=== PATIENT | female | born 1985 | race Caucasian/White ===

== ENCOUNTER 2016-02-16 04:27 | Inpatient (IN) ==
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
[2016-02-16 06:54] LABS: Basophils % 0.3 %; Eosinophils # 0.1 K/mcL (0.0-0.6); Eosinophils % 0.9 %; Hematocrit 31.8 % (35.3-44.9); Hemoglobin 10.4 g/dL (11.5-15.4); Immature Granulocytes % 0.3 % (0-4); Lymphocytes # 1.9 K/mcL (0.6-4.6); Lymphocytes % 19.7 %; Mean Corpuscular HGB Conc 32.7 g/dL (31.6-35.5); Mean Corpuscular Volume 91.6 fL (83.0-100.0); Mean Platelet Volume 10.8 fL (9.4-12.4); Monocytes # 0.7 K/mcL (0.0-1.3); Monocytes % 7.5 %; Neutrophils # 6.8 K/mcL (1.6-8.9); Platelet Count 203 K/mcL (140-400); Red Blood Count 3.47 M/mcL (3.82-4.97); Red Cell Distribution Width 15.2 % (11.5-14.5); Segmented Neutrophils % 71.3 %
[2016-02-16 07:07] LABS: BUN/Creatinine Ratio 20 (6-26); Blood Urea Nitrogen 15 mg/dL (7-20); Carbon Dioxide 23 mEq/L (19-29); Chloride 107 mEq/L (98-109); Glucose 106 mg/dL (70-99); Osmolality,Calculated 287 (280-300); Potassium 3.5 mEq/L (3.5-4.5); Sodium 138 mEq/L (136-145); eGFR For African Americans > 60 (> 60); eGFR For Non-African Americans > 60 (> 60)
[2016-02-16 07:08] LABS: Acetaminophen < 1.0 mcg/mL (10-30); Ethanol < 10 mg/dL (0-10); Salicylate < 5.0 mg/dL (15-30)
--- NOTE | 2016-02-16 07:52 | Emergency Department Note ---
Overdose - Medical Records Medical records reviewed: Yes I reviewed the patient's medical records. - Lab Data Lab results reviewed: Yes I reviewed the patient's lab results. Result diagrams: 02/16/16 06:48 02/16/16 06:48 Lab Results 02/16/16 02/16/16 02/16/16 Range/Units 06:48 06:48 08:29 WBC 9.5 (4.3-11.1) K/mcL RBC 3.47 L (3.82-4.97) M/mcL Hgb 10.4 L (11.5-15.4) g/dL Hct 31.8 L (35.3-44.9) % MCV 91.6 (83.0-100.0) fL MCH 30.0 (28.0-33.3) pg MCHC 32.7 (31.6-35.5) g/dL RDW 15.2 H (11.5-14.5) % Plt Count 203 (140-400) K/mcL MPV 10.8 (9.4-12.4) fL Immature Gran % 0.3 (0-4) % Seg Neutrophils % 71.3 % Lymphocytes % 19.7 % Monocytes % 7.5 % Eosinophils % 0.9 % Basophils % 0.3 % Neutrophils # 6.8 (1.6-8.9) K/mcL Lymphocytes # 1.9 (0.6-4.6) K/mcL Monocytes # 0.7 (0.0-1.3) K/mcL Eosinophils # 0.1 (0.0-0.6) K/mcL Basophils # 0.0 (0.0-0.2) K/mcL Sodium 138 (136-145) mEq/L Potassium 3.5 (3.5-4.5) mEq/L Chloride 107 (98-109) mEq/L Carbon Dioxide 23 (19-29) mEq/L BUN 15 (7-20) mg/dL Creatinine 0.74 (0.57-1.11) mg/dL Est GFR ( Amer) > 60 (> 60) Est GFR (Non-Af Amer) > 60 (> 60) BUN/Creatinine Ratio 20 (6-26) Glucose 106 H (70-99) mg/dL Calculated Osmolality 287 (280-300) Calcium 9.0 (8.6-10.8) mg/dL Urine Color Yellow (Yellow) Urine Clarity Clear (Clear) Urine pH 6.0 (5.0-8.0) pH Units Ur Specific [place] 1.017 (1.010-1.025) Urine Protein Trace (Neg-Trace) mg/dL Urine Glucose (UA) Normal (Normal) mg/dL Urine Ketones Negative (Negative) mg/dL Urine Blood Negative (Negative) Urine Nitrite Negative (Negative) Urine Bilirubin Negative (Negative) Urine Urobilinogen Normal (Normal) mg/dL Ur Leukocyte Esterase Trace H (Negative) Urine Microscopic RBC 3-5 H (0-3) per hpf Urine Microscopic WBC 5-15 H (0-3) per hpf Ur Squamous Epith Cells Many H (None-Few) per lpf Urine Bacteria None Seen (None-Few) per hpf Hyaline Casts None Seen (None-Few) per lpf Urine Yeast Test Not Performed Urine Test (Negative) Salicylates < 5.0 L (15-30) mg/dL Urine Opiates Screen (Gqcqhz=875) ng/mL Acetaminophen < 1.0 L (10-30) mcg/mL Ur Barbiturates Screen (Ihwymh=272) ng/mL Ur Phencyclidine Scrn (Cutoff=25) ng/mL Ur Amphetamines Screen (Zkhjcg=9938) ng/mL U Benzodiazepines Scrn (Quyofw=619) ng/mL Urine Cocaine Screen (Cutoff= 300) ng/mL U Marijuana (THC) Screen (Cutoff = 50) ng/mL Ethyl Alcohol < 10 (0-10) mg/dL 02/16/16 02/16/16 Range/Units 08:29 08:29 WBC (4.3-11.1) K/mcL RBC (3.82-4.97) M/mcL Hgb (11.5-15.4) g/dL Hct (35.3-44.9) % MCV (83.0-100.0) fL MCH (28.0-33.3) pg MCHC (31.6-35.5) g/dL RDW (11.5-14.5) % Plt Count (140-400) K/mcL MPV (9.4-12.4) fL Immature Gran % (0-4) % Seg Neutrophils % % Lymphocytes % % Monocytes % % Eosinophils % % Basophils % % Neutrophils # (1.6-8.9) K/mcL Lymphocytes # (0.6-4.6) K/mcL Monocytes # (0.0-1.3) K/mcL Eosinophils # (0.0-0.6) K/mcL Basophils # (0.0-0.2) K/mcL Sodium (136-145) mEq/L Potassium (3.5-4.5) mEq/L Chloride (98-109) mEq/L Carbon Dioxide (19-29) mEq/L BUN (7-20) mg/dL Creatinine (0.57-1.11) mg/dL Est GFR ( Amer) (> 60) Est GFR (Non-Af Amer) (> 60) BUN/Creatinine Ratio (6-26) Glucose (70-99) mg/dL Calculated Osmolality (280-300) Calcium (8.6-10.8) mg/dL Urine Color (Yellow) Urine Clarity (Clear) Urine pH (5.0-8.0) pH Units Ur Specific [place] (1.010-1.025) Urine Protein (Neg-Trace) mg/dL Urine Glucose (UA) (Normal) mg/dL Urine Ketones (Negative) mg/dL Urine Blood (Negative) Urine Nitrite (Negative) Urine Bilirubin (Negative) Urine Urobilinogen (Normal) mg/dL Ur Leukocyte Esterase (Negative) Urine Microscopic RBC (0-3) per hpf Urine Microscopic WBC (0-3) per hpf Ur Squamous Epith Cells (None-Few) per lpf Urine Bacteria (None-Few) per hpf Hyaline Casts (None-Few) per lpf Urine Yeast Urine Test Negative (Negative) Salicylates (15-30) mg/dL Urine Opiates Screen Positive H (Laoxkj=080) ng/mL Acetaminophen (10-30) mcg/mL Ur Barbiturates Screen Negative (Fvqzpt=478) ng/mL Ur Phencyclidine Scrn Negative (Cutoff=25) ng/mL Ur Amphetamines Screen Positive H (Caehqs=4554) ng/mL U Benzodiazepines Scrn Positive H (Nsnsdv=152) ng/mL Urine Cocaine Screen Positive H (Cutoff= 300) ng/mL U Marijuana (THC) Screen Positive H (Cutoff = 50) ng/mL Ethyl Alcohol (0-10) mg/dL - Radiology Data Radiology results reviewed: Yes I reviewed the patient's radiology results. Overdose HPI - General Chief Complaint: ED Overdose Stated Complaint: OD Time Seen by Provider: 02/16/16 04:44 Source: patient, EMS Limitations: no limitations Nursing Notes Reviewed: Yes Vital Signs Reviewed: Yes - Related Data Home Medications Medication Instructions Recorded Confirmed Albuterol Sulfate [Ventolin Hfa] 2 puff IH Q4H PRN 01/24/16 01/24/16 ChlorproMAZINE [Thorazine] 25 mg PO QID 01/24/16 01/24/16 Diazepam [Valium] 10 mg PO TID 01/24/16 01/24/16 Dicyclomine [Bentyl] 10 mg PO TID 01/24/16 01/24/16 Omeprazole [PriLOSEC] 40 mg PO DAILY 01/24/16 01/24/16 Paroxetine HCl [Paxil] 60 mg PO DAILY 01/24/16 01/24/16 Promethazine Syrup [Phenergan 25 mg PO TID 01/24/16 01/24/16 Syrup] Sulfasalazine [Sulfazine] 1,000 mg PO DAILY 01/24/16 01/24/16 Gabapentin [Neurontin] 400 mg PO TID 02/16/16 02/16/16 Gabapentin [Neurontin] 800 mg PO TID 02/16/16 02/16/16 Mometasone/Formoterol [Dulera 100 2 puff IH BID 02/16/16 02/16/16 Mcg/5 Mcg Inhaler] Allergies Allergy/AdvReac Type Severity Reaction Status Date / Time Penicillins Allergy See Verified 10/21/15 01:50 Comments Constitutional: Denies: fever, chills Cardiovascular: Denies: chest pain, dyspnea on exertion Respiratory: Denies: cough, dyspnea Gastrointestinal: Denies: abdominal pain, nausea, vomiting Musculoskeletal: Denies: back pain, neck pain Neurological: Denies: headache, weakness, numbness Psychiatric: Reports: anxiety. Denies: suicidal thoughts Past Medical History - Past Medical History Medical history: Reports: fibromyalgia, hepatitis Surgical history: Reports: non-contributory Psychiatric history: Reports: anxiety, bipolar, depression - Social History Smoking Status: Current every day smoker Smokeless Tobacco Status: No Alcohol use: Reports: none Drug use: Reports: opiates, marijuana, IVDU Physical Exam - General Limitations: no limitations General appearance: alert Course Course Narrative: Assumed care from Dr. Romero. 30-year-old female brought in as a heroin overdose. Patient had been pink slipped prior to our arrival due to her allegations of possible suicidal ideation. She had a CT scan which was concerning for possible acute infarct of the occipital lobe. MRI pending. - Reevaluation(s) Reevaluation #1: MRI exam is negative. Urinalysis appears unremarkable. Urine drug screen shows 5 different substances including benzodiazepines, opiates, cocaine, amphetamines, marijuana. We will await psych 1A evaluation. Time: 08:02 Reevaluation #2: Patient now denying any allegations of suicidal ideation. However when she initially woke, she had made statements saying she wishes she was not awoken up. Stated she took that much drugs for a reason and that she did not want to wake up. Patient now awake and talking without any difficulty. We will have psych 1A evaluate the patient at this time. Time: 10:26 Reevaluation #3: Patient is being admitted to psych 1A at this time. They would like 5 mg IM dose of Zyprexa at this time. Time: 11:28 Vital Signs Temperature 98.0 F 02/16/16 04:29 Pulse Rate 130 02/16/16 04:29 Respiratory Rate 22 02/16/16 04:29 Blood Pressure 140/77 02/16/16 04:29 O2 Sat by Pulse Oximetry 100 02/16/16 04:29 Temperature 98.0 F 02/16/16 04:29 Pulse Rate 130 02/16/16 04:29 Respiratory Rate 22 02/16/16 04:29 Blood Pressure 140/77 02/16/16 04:29 O2 Sat by Pulse Oximetry 100 02/16/16 04:29 Oxygen Delivery Oxygen Delivery Room Air Disposition Clinical Impression: Opiate overdose Qualifiers: Encounter type: initial encounter Injury intent: undetermined intent Qualified Code(s): T40.604A - Poisoning by unspecified narcotics, undetermined, initial encounter Suicide attempt by multiple drug overdose Qualifiers: Encounter type: initial encounter Qualified Code(s): T50.902A - Poisoning by unspecified drugs, medicaments and biological substances, intentional self-harm , initial encounter Disposition: Admitted As Inpatient Condition: Fair Referrals: See Hardy MD [Primary Care Provider] - Forms: ED Satisfaction Letter Time of Disposition: 11:29
[2016-02-16 08:35] LABS: Bilirubin,Urine Negative (Negative); Blood,Urine Negative (Negative); Clarity,Urine Clear (Clear); Color,Urine Yellow (Yellow); Glucose,Urine (UA) Normal (Normal); Ketones,Urine Negative (Negative); Leukocyte Esterase,Urine Trace (Negative); Nitrite,Urine Negative (Negative); Protein,Urine Trace mg/dL (Neg-Trace); Specific Gravity,Urine 1.017 (1.010-1.025); Urobilinogen,Urine Normal (Normal)
[2016-02-16 08:37] LABS: Bacteria,Urine None Seen per hpf (None-Few); Hyaline Casts,Urine None Seen per lpf (None-Few); Squamous Epithelial Cell,Urine Many per lpf (None-Few)
[2016-02-16 08:52] LABS: Amphetamine Screen,Urine Positive ng/mL (Cutoff=1000); Barbiturate Screen,Urine Negative ng/mL (Cutoff=200); Benzodiazepines Screen,Urine Positive ng/mL (Cutoff=200); Cannabinoid Screen,Urine Positive ng/mL (Cutoff = 50); Cocaine Screen,Urine Positive ng/mL (Cutoff= 300); Opiate Screen,Urine Positive ng/mL (Cutoff=300); Phencyclidine Screen,Urine Negative ng/mL (Cutoff=25)
[2016-02-16] MEDS ORDERED: 0.9 % Sodium Chloride 1,000 ML IVC ONE (10:17)
[2016-02-16] MEDS ORDERED: OLANZapine 10 MG VIAL IM ONE ×2 (11:27→13:10)
[2016-02-16] MEDS ORDERED: Water for inj. (sterile) 10 ML IV ONE (11:44)
[2016-02-16] MEDS ORDERED: *HR* LORazepam 2 MG/ML VIAL IM PRN (13:11)
[2016-02-16] MEDS ORDERED: Mag Hydrox/Al Hydrox/Simeth 30 ML UDC PO PRN (13:11)
[2016-02-16] MEDS ORDERED: Ibuprofen 400 MG TABLET PO PRN (13:11)
[2016-02-16] MEDS ORDERED: Haloperidol Lactate 5 MG/ML VIAL IM PRN (13:11)
[2016-02-16] MEDS ORDERED: MOM Conc 10 ML UD.LIQ PO PRN (13:11)
[2016-02-16] MEDS ORDERED: traZODone 50 MG TABLET PO PRN (13:11)
[2016-02-16] MEDS ORDERED: *HR* LORazepam 1 MG TABLET PO PRN (13:11)
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
[2016-02-16] MEDS: Nicotine 21 MG PATCH.TD24 TD SCH (14:11)
[2016-02-16] MEDS: Gabapentin 300 MG CAPSULE PO SCH ×2 (16:08→21:01)
[2016-02-16] MEDS: chlorproMAZINE 25 MG TABLET PO SCH ×2 (16:53→21:01)
--- NOTE | 2016-02-16 17:42 | Electrocardiograph Report ---
Test Date: 2016-02-16 Pat Name: OMARI BELTRAN Department: 103 Room: 1A42 Gender: F Director Of Physical Therapy: MATTHIAS : 1985 Requested By: Virgilio West Order Number: [id number] Reading MD: Anna Leavitt DO Measurements Intervals Nash Rate: 119 P: 58 MT: 120 QRS: 48 QRSD: 99 T: 3 QT: 320 QTc: 390 Interpretive Statements SINUS TACHYCARDIA MINIMAL ST DEPRESSION ABNORMAL RHYTHM ECG Electronically Signed On 02-16-16 17:34:56 EST by Anna Leavitt DO
[2016-02-16] MEDS: sulfaSALAzine 500 MG TABLET PO SCH (18:03)
[2016-02-16] MEDS: Budesonide/Formoterol 80/4.5 MDI IH SCH (22:15)
[2016-02-17] MEDS: Gabapentin 300 MG CAPSULE PO SCH ×3 (09:50→21:29)
[2016-02-17] MEDS ORDERED: diazePAM 5 MG TABLET PO ONE (09:50)
[2016-02-17] MEDS: chlorproMAZINE 25 MG TABLET PO SCH ×3 (09:50→16:59)
[2016-02-17] MEDS: Nicotine 21 MG PATCH.TD24 TD SCH (09:51)
[2016-02-17] MEDS: sulfaSALAzine 500 MG TABLET PO SCH (09:51)
[2016-02-17] MEDS: Budesonide/Formoterol 80/4.5 MDI IH SCH ×2 (09:52→21:30)
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
[2016-02-17] MEDS ORDERED: chlorproMAZINE 25 MG TABLET PO SCH (21:00)
[2016-02-18] MEDS: Nicotine 21 MG PATCH.TD24 TD SCH (09:34)
[2016-02-18] MEDS: Gabapentin 300 MG CAPSULE PO SCH (09:35)
[2016-02-18] MEDS: sulfaSALAzine 500 MG TABLET PO SCH (09:36)
[2016-02-18] MEDS: chlorproMAZINE 25 MG TABLET PO SCH ×2 (09:37→12:50)
[2016-02-18] MEDS: Budesonide/Formoterol 80/4.5 MDI IH SCH (09:38)
[2016-02-18 10:08] VITALS: BP 125/89
--- NOTE | 2016-02-18 11:48 | Discharge Summary ---
Date of Encounter: 02/18/16 Time of Encounter: 11:38 Diagnosis - Discharge Diagnosis (1) Major depression, recurrent Status: Acute Qualifiers: Active/Remission status: currently active Major depression episode severity : moderate Qualified Code(s): F33.1 - Major depressive disorder, recurrent, moderate (2) Polysubstance (including opioids) dependence with physiol dependence Status: Acute Medications - Discharge Medications Albuterol Sulfate [Ventolin Hfa] 2 puff IH Q4H PRN 01/24/16 [History] Diazepam [Valium] 10 mg PO TID 01/24/16 [History] Omeprazole [PriLOSEC] 40 mg PO DAILY 01/24/16 [History] Paroxetine HCl [Paxil] 60 mg PO DAILY 01/24/16 [History] Sulfasalazine [Sulfazine] 1,000 mg PO DAILY 01/24/16 [History] Gabapentin [Neurontin] 800 mg PO TID 02/16/16 [History] Mometasone/Formoterol [Dulera 100 Mcg/5 Mcg Inhaler] 2 puff IH BID 02/16/16 [ History] Albuterol Sulfate [Albuterol Inhaler] 2 puff IH Q2HR PRN #0 inhaler 02/18/16 [Rx ] ChlorproMAZINE [Thorazine] 25 mg PO 0900,1300,1700 tablet 02/18/16 [Rx] ChlorproMAZINE [Thorazine] 50 mg PO HS tablet 02/18/16 [Rx] TraZODone 50 mg PO HS PRN #0 tablet 02/18/16 [Rx] Allergies Penicillins Allergy (Verified 10/21/15 01:50) See Comments Provider Date of admission: 02/16/16 12:47 Primary care physician: See Hardy MD Discharging clinician: Jair Keating Assessment and Plan - Patient/Caregiver Discharge Instructions Activity: resume usual activities as tolerated Diet: regular diet - Follow up Plan Follow up with: [facility] [Outside] (Office staff will contact you directly to schedule your intake appointment for counseling and case management services. You will see psychiatric prescriber, Dr. Tejeda, on 03/29/2016 at 2:00pm. Please arrive 15 minutes early for this appointment to complete paperwork. You may contact the office regularly to check for cancellations that may allow you to be seen sooner by the psychiatric prescriber.) Functional capacity at discharge: independent ambulation Overall status at discharge: Stable Disposition: Home, Self-Care Hospital Course Hospital course: Ms. Terry is a 30 year old female Was admitted after a suicide attempt. Patient was hospitalized and after reviewing the symptom diagnosis and treatment Planning the Risperdal and the side effects alternative treatment consonants and no treatment giving informed consent from the patient she was treated with antidepressant medications and mood stabilizers please refer to the discharge medication list for details of her medications. Patient was encouraged to attend parts of it in groups and anchoring on the unit which included supportive therapy psychoeducational cognitive restructuring and stress management groups etc. Patient was counseled extensively regarding her drug use and his psychological and physiological impact and was helped to identify triggers and develop a relapse prevention plan. Overall patient's condition and stabilize her mood started to become more bright and cheerful. She became more future oriented and positive. Her overall outlook towards life improved significantly. She was able to verbalize a safety and relapse prevention plan. She tolerated medications fairly well and did not report any side effects. Overall patient's discharge condition was stable. - Time Spent with Patient Total time spent providing and/or coordinating discharge services: Quality - Multiple Antipsychotics Patient discharged on 2 or more antipsychotic medications: No Procedures - Procedures Procedures: Medication Management, Crisis Stabilization, Supportive Therapy, Group Therapy, Psychoeducational Therapy Mental Status Exam - Mental Status Exam Patient orientation: Yes Person, Yes Time, Yes Place Level of alertness: Alert Patient appearance: Appropriate, Disheveled Behavior: cooperative Psychomotor activity: Normal Eye contact: Maintains Eye Contact Mood description: Euthymic/stable Affect description: euthymic Speech pattern: Normal rate, Normal rhythm, Normal tone Speech Volume: Normal Thought process: Intact Thought Content: No Suicidal ideation, No Homicidal ideation Perceptual Disturbances: No Auditory hallucinations, No Visual hallucinations Judgment: Fair Insight: Partial
== END 2016-02-18 15:25 | disposition home or self-care (01) | DRG 751 ==
LOC: EMEROO 04:27 → SUATTDRO 12:47 → 1ANU 12:47
PROVIDERS: ADMIT Student in an Organized Health Care Education/Training Program; ATTEND Psychiatry & Neurology Psychiatry

== ENCOUNTER 2017-05-12 21:06 | Inpatient (IN) ==
[2017-05-12] MEDS ORDERED: *HR* LORazepam 2 MG/ML VIAL IM ONE (21:35)
[2017-05-12] MEDS ORDERED: Haloperidol Lactate 5 MG/ML VIAL IM ONE (21:35)
[2017-05-12] MEDS ORDERED: Haloperidol Lactate 5 MG/ML VIAL ONE (21:36)
[2017-05-12] MEDS ORDERED: *HR* LORazepam 2 MG/ML VIAL ONE (21:37)
[2017-05-12] MEDS ORDERED: *HR* OxyCODONE/APAP 10/325 TABLET PO ONE (21:41)
[2017-05-12 22:15] LABS: Basophils % 0.3 %; Eosinophils # 0.4 K/mcL (0.0-0.6); Eosinophils % 2.5 %; Hematocrit 31.8 % (35.3-44.9); Hemoglobin 10.1 g/dL (11.5-15.4); Immature Granulocytes % 0.4 % (0-4); Lymphocytes # 2.6 K/mcL (0.6-4.6); Lymphocytes % 18.2 %; Mean Corpuscular HGB Conc 31.8 g/dL (31.6-35.5); Mean Corpuscular Hemoglobin 29.4 pg (28.0-33.3); Mean Corpuscular Volume 92.7 fL (83.0-100.0); Mean Platelet Volume 11.2 fL (9.4-12.4); Monocytes # 1.2 K/mcL (0.0-1.3); Monocytes % 8.4 %; Platelet Count 251 K/mcL (140-400); Red Blood Count 3.43 M/mcL (3.82-4.97); Segmented Neutrophils % 70.2 %
[2017-05-12 22:41] LABS: Alanine Aminotransferase 27 Units/L (7-52); Albumin 3.9 g/dL (3.5-5.7); Albumin/Globulin Ratio 1.1 (1.1-2.2); Alkaline Phosphatase 158 Units/L (34-104); Aspartate Amino Transferase 26 Units/L (13-39); BUN/Creatinine Ratio 20 (6-26); Bilirubin,Total 0.5 mg/dL (0.3-1.0); Blood Urea Nitrogen 18 mg/dL (6-20); Calcium 9.6 mg/dL (8.6-10.3); Carbon Dioxide 30 mEq/L (23-29); Chloride 100 mEq/L (98-107); Globulin 3.7 g/dL (2.4-3.5); Glucose 82 mg/dL (70-105); Osmolality,Calculated 289 (280-300); Potassium 4.2 mEq/L (3.5-5.1); Sodium 139 mEq/L (136-145); Total Protein 7.6 g/dL (6.4-8.9); eGFR For African Americans > 60 (> 60); eGFR For Non-African Americans > 60 (> 60)
[2017-05-12] MEDS ORDERED: Ziprasidone injection 20 MG/ML VIAL IM ONE ×2 (22:49→23:14)
[2017-05-12] MEDS ORDERED: Clindamycin 900 MG/50 ML 900 MG/50 ML IV.SOLN IVPB ONE (23:05)
--- NOTE | 2017-05-12 23:09 | ENT - History & Physical ---
Date of Encounter: 05/12/17 Time of Encounter: 23:07 Assessment and Plan (1) Neck abscess Current Visit: Yes Status: Acute The assessment and plan as outlined above was discussed with the patient and/or family members who expressed understanding and agreement. All questions were answered. See procedure note dictated Eppert from this History of Present Illness HPI: Ms. Terry is a 32 year old female IV drug user with neck abscess left side admits to using the veins in the neck or access. Comes in by ambulance with combative state. CT scan shows large neck masses pinpointing to the skin in the left neck level III overlying the SCM muscle. Aspect no evidence of thrombosis seen within the internal jugular vein nor thoracic vessels. Past Med Surg Social Fam HX - Past Medical History Medical history: fibromyalgia, hepatitis Psychiatric history: anxiety, depression, other - Past Surgical History Surgical History: non-contributory - Social History Smoking Status: Current every day smoker Smokeless Tobacco Status: No Alcohol use: none Drug use: opiates, marijuana, IV Drug Use Medications and Allergies Albuterol Sulfate [Ventolin Hfa] 2 puff IH Q4H PRN 01/24/16 [History] Omeprazole [PriLOSEC] 40 mg PO DAILY 01/24/16 [History] Paroxetine HCl [Paxil] 60 mg PO DAILY 01/24/16 [History] Sulfasalazine [Sulfazine] 1,000 mg PO DAILY 01/24/16 [History] diazePAM [Valium] 10 mg PO TID 01/24/16 [History] Gabapentin [Neurontin] 800 mg PO TID 02/16/16 [History] Mometasone/Formoterol [Dulera 100 Mcg/5 Mcg Inhaler] 2 puff IH BID 02/16/16 [ History] Albuterol Sulfate [Albuterol Inhaler] 2 puff IH Q2HR PRN #0 inhaler 02/18/16 [Rx ] TraZODone 50 mg PO HS PRN #0 tablet 02/18/16 [Rx] chlorproMAZINE [Thorazine] 25 mg PO 0900,1300,1700 tablet 02/18/16 [Rx] chlorproMAZINE [Thorazine] 50 mg PO HS tablet 02/18/16 [Rx] 3 Allergy/AdvReac Type Severity Reaction Status Date / Time Penicillins Allergy See Verified 10/21/15 01:50 Comments ENT Exam Initial Vital Signs Temp Pulse Resp BP Pulse Ox 98.2 F 103 16 145/89 98 05/12/17 21:22 05/12/17 21:22 05/12/17 21:22 05/12/17 21:22 05/12/17 21:22 Results - Labs 05/12/17 22:05 05/12/17 22:05 Abnormal lab results WBC 14.2 K/mcL (4.3-11.1) H 05/12/17 22:05 RBC 3.43 M/mcL (3.82-4.97) L 05/12/17 22:05 Hgb 10.1 g/dL (11.5-15.4) L 05/12/17 22:05 Hct 31.8 % (35.3-44.9) L 05/12/17 22:05 Neutrophils # 10.0 K/mcL (1.6-8.9) H 05/12/17 22:05 ESR 64 mm/hr (0-15) H 05/12/17 22:05 Carbon Dioxide 30 mEq/L (23-29) H 05/12/17 22:05 Lactic Acid 3.9 mmol/L (0.5-2.2) H 05/12/17 22:05 Alkaline Phosphatase 158 Units/L (34-104) H 05/12/17 22:05 Globulin 3.7 g/dL (2.4-3.5) H 05/12/17 22:05 Diabetes panel 05/12/17 Range/Units 22:05 Sodium 139 (136-145) mEq/L Potassium 4.2 (3.5-5.1) mEq/L Chloride 100 (98-107) mEq/L Carbon Dioxide 30 H (23-29) mEq/L BUN 18 (6-20) mg/dL Creatinine 0.92 (0.60-1.20) mg/dL Glucose 82 (70-105) mg/dL Calcium 9.6 (8.6-10.3) mg/dL AST 26 (13-39) Units/L ALT 27 (7-52) Units/L Alkaline Phosphatase 158 H (34-104) Units/L Albumin 3.9 (3.5-5.7) g/dL Calcium panel 05/12/17 Range/Units 22:05 Calcium 9.6 (8.6-10.3) mg/dL Albumin 3.9 (3.5-5.7) g/dL Pituitary panel 05/12/17 Range/Units 22:05 Sodium 139 (136-145) mEq/L Potassium 4.2 (3.5-5.1) mEq/L Chloride 100 (98-107) mEq/L Carbon Dioxide 30 H (23-29) mEq/L BUN 18 (6-20) mg/dL Creatinine 0.92 (0.60-1.20) mg/dL Glucose 82 (70-105) mg/dL Calcium 9.6 (8.6-10.3) mg/dL Adrenal panel 05/12/17 Range/Units 22:05 Sodium 139 (136-145) mEq/L Potassium 4.2 (3.5-5.1) mEq/L Chloride 100 (98-107) mEq/L Carbon Dioxide 30 H (23-29) mEq/L BUN 18 (6-20) mg/dL Creatinine 0.92 (0.60-1.20) mg/dL Glucose 82 (70-105) mg/dL Calcium 9.6 (8.6-10.3) mg/dL Total Bilirubin 0.5 (0.3-1.0) mg/dL AST 26 (13-39) Units/L ALT 27 (7-52) Units/L Alkaline Phosphatase 158 H (34-104) Units/L Albumin 3.9 (3.5-5.7) g/dL All other labs normal. Procedures: General Surgery - Abscess I/D Consent obtained: verbal consent Site: neck, other Side (if applicable): left Sedation/analgesia: other Technique: needle aspiration Irrigation: No (Side of needle insertion site was cleansed with ChloraPrep) Complications: none
[2017-05-12] MEDS ORDERED: Naloxone 0.4 MG/ML INJ IVP PRN (23:10)
[2017-05-12] MEDS ORDERED: 0.9 % Sodium Chloride 2,000 ML ONE (23:10)
[2017-05-12] MEDS: 0.9 % Sodium Chloride 1,000 ML IVC SCH (23:14)
--- NOTE | 2017-05-12 23:17 | Internal Med History&Physical ---
Date of Encounter: 05/12/17 Time of Encounter: 23:55 Assessment and Plan (1) Severe sepsis Current visit: Yes Status: Acute secondary to neck abscess no fever documented but presented with tachycardia, leukocytosis of 14,200 with left shift, and a greater than 6 cm left sternocleidomastoid abscess secondary to injection of drugs into her neck. She has lactic acidosis, blood pressure WNL Repeat timed lactate ordered, will follow Blood cultures and culture has been sent in the ER, follow final report Continue vancomycin and clindamycin as patient has penicillin allergies. Follow wound culture. Neck Ct noted anD ENT is following. (2) Lactic acidosis Current visit: Yes Status: Acute as above, continue IVF, follow repeat labs (3) Neck abscess Current visit: Yes Status: Acute s/p aspiration of pus by ENT, ENT is following, keep NPO for complete wash out a.m (4) Heroin abuse Current visit: Yes Status: Chronic SW eval (5) Major depression, recurrent Current visit: Yes Status: Chronic per boyfriend at the bedside, the patient was taking off assignment psych meds are properly. The patient denied suicidal or homicidal ideation to the ED team and to department. Patient required multiple sedation medications to prevent harm in the ER Keep sitter at the bedside Psychiatry evaluation when patient is more awake. Qualifiers: Active/Remission status: currently active Major depression episode severity : moderate Qualified Code(s): F33.1 - Major depressive disorder, recurrent, moderate (6) Polysubstance (including opioids) dependence with physiol dependence Current visit: Yes Status: Chronic as in drug abuse monitor for withdrawal (7) Hepatitis C Current visit: Yes Status: Chronic chronic, LFT stable, continue to monitor Qualifiers: Viral hepatitis chronicity: chronic Hepatic coma status: without hepatic coma Qualified Code(s): B18.2 - Chronic viral hepatitis C Internal Medicine - H&P: HPI Chief complaint: Neck abscess Admitted From: Home Plans for Post Hospital Care: Home History of present illness: Ms. Terry is a 32 year old female with history of depression, anxiety, fibromyalgia, intravenous drug abuse and meth use. She presented to the ER with complaints of an extremely large neck abscess on the left sternocleidomastoid muscle after injecting into her neck for 2 weeks. The patient was noted to be extremely agitated on arrival and with erratic behavior requiring multiple sedating medications. At nighttime of evaluation, the patient was drowsy and somnolent from ineffective medications. She had received aspiration of the neck abscess by the end nose and throat physician which has been sent for culture, she had been started on vancomycin by the ER attending. Bufferin at the bedside reports patient has been injecting hearing into her neck region since [address] scan was performed of the neck which showed a mural enhancing large SCM abscess, no evidence of thrombosis seen within the internal jugular vein nor thoracic vessels, with no airway compromise. Lactic acidosis, leukocytosis on in keeping with severe sepsis secondary to cellulitis and neck abscess. She will be admitted for sepsis secondary to cellulitis of neck with abscess, ENT is following Due to extremely combative nature on arrival, patient will require a sitter for now Psych eval when she is more awake Past Med Surg Social Fam HX - Past Medical History Medical history: fibromyalgia, hepatitis Psychiatric history: anxiety, depression, other - Past Surgical History Surgical History: non-contributory - Social History Smoking Status: Current every day smoker Smokeless Tobacco Status: No Alcohol use: none Drug use: opiates, marijuana, IV Drug Use Internal Medicine - H&P: Meds Albuterol Sulfate [Ventolin Hfa] 2 puff IH Q4H PRN 01/24/16 [History] Omeprazole [PriLOSEC] 40 mg PO DAILY 01/24/16 [History] Paroxetine HCl [Paxil] 60 mg PO DAILY 01/24/16 [History] Sulfasalazine [Sulfazine] 1,000 mg PO DAILY 01/24/16 [History] diazePAM [Valium] 10 mg PO TID 01/24/16 [History] Gabapentin [Neurontin] 800 mg PO TID 02/16/16 [History] Mometasone/Formoterol [Dulera 100 Mcg/5 Mcg Inhaler] 2 puff IH BID 02/16/16 [ History] Albuterol Sulfate [Albuterol Inhaler] 2 puff IH Q2HR PRN #0 inhaler 02/18/16 [Rx ] TraZODone 50 mg PO HS PRN #0 tablet 02/18/16 [Rx] chlorproMAZINE [Thorazine] 25 mg PO 0900,1300,1700 tablet 02/18/16 [Rx] chlorproMAZINE [Thorazine] 50 mg PO HS tablet 02/18/16 [Rx] 3 Allergy/AdvReac Type Severity Reaction Status Date / Time Penicillins Allergy See Verified 10/21/15 01:50 Comments ROS unobtainable: due to mental status All Systems PM: A 10-system review of systems was performed and is negative for pertinent findings except as documented above in the HPI. - Constitutional Vitals: Temp Pulse Resp BP Pulse Ox 98.2 F 84 16 102/81 95 05/12/17 21:22 05/12/17 23:00 05/12/17 23:00 05/12/17 23:00 05/12/17 23:00 General appearance: Present: A&O X 0 (patient is deep asleep from medications administered in the ED and only rousable to noxios stimuli) - Head Head exam: Present: atraumatic, normocephalic - Eye Eye exam: Present: PERRL, conjuntiva pink, sclera anicteric Pupils: Present: PERRL - Neck Additional comments: LEft neck wound dressing soaked, when removed ~2X2 com wound draining serous fluid copiously - Respiratory Respiratory exam: Present: CTAB (anterior auscultation) - Cardiovascular Cardiovascular exam: Present: RRR, +S1, +S2. Absent: diastolic murmur, gallop, rubs, systolic murmur - GI/Abdominal GI/Abdominal exam: Present: normal bowel sounds, soft, no peritoneal signs. Absent: distended, tenderness - Extremities Exam Extremities exam: Present: warm, radial pulses palpable and symmetrical. Absent : calf tenderness, cyanotic, pedal edema - Neurological Exam Neurological exam: Present: altered, CN II-XII intact, no focal deficits. Absent: oriented X3, pronater drift, facial droop, speech deficit - Skin Skin exam: Present: dry, intact Additional comments: track kiser Internal Med - H&P Results - Labs CBC & Chem 7: 05/12/17 22:05 05/12/17 22:05 Labs: Short CBC 05/12/17 Range/Units 22:05 WBC 14.2 H (4.3-11.1) K/mcL Hgb 10.1 L (11.5-15.4) g/dL Hct 31.8 L (35.3-44.9) % Plt Count 251 (140-400) K/mcL Neutrophils # 10.0 H (1.6-8.9) K/mcL BMP 04/01/18 22:05 Sodium 139 Potassium 4.2 Chloride 100 Carbon Dioxide 30 H BUN 18 Creatinine 0.92 Glucose 82 Calcium 9.6 Liver Function 05/12/17 Range/Units 22:05 Total Bilirubin 0.5 (0.3-1.0) mg/dL AST 26 (13-39) Units/L ALT 27 (7-52) Units/L Alkaline Phosphatase 158 H (34-104) Units/L Albumin 3.9 (3.5-5.7) g/dL - Impressions ITS Impressions Soft Tissue Neck CT 05/12/17 21:38 IMPRESSION: Left neck predominantly cystic mass with mural enhancing component, presumably abscess, involves posterior aspect sternocleidomastoid muscle as detailed. D/ / Duke Duffy MD / Duke Duffy MD Interpreting Provider: Duke Duffy MD Chest CTA 05/12/17 21:39 IMPRESSION: No evidence of pulmonary embolism or acute pulmonary abnormality. D/ / Josué Garcia MD / Josué Garcia MD Interpreting Provider: Josué Garcia MD
--- NOTE | 2017-05-12 23:17 | ENT - Procedure Note ---
Date of procedure: 05/12/17 (11 PM) Pre-op diagnosis: Left neck abscess, deep Post-op diagnosis: same Procedure: Verbal consent was obtained after CT scan reveals greater than 6 cm abscess level III neck overlying SCM muscle. Area was prepped with ChloraPrep white then 19-gauge needle on a 20 mL syringe was inserted through it already draining sites in the neck skin and 20 mL aspirated into the syringe. Compression over the site then aspirated another 20 mL collected and gauze and then another needle insertion with a clean syringe and needle yielded another 10 mL then a pressure dressing was applied over this. Anesthesia: none Surgeon: Marlon Hernandez Was there an medical support assistant present: Yes Specimens collected: 20 mL of foul-smelling purulent drainage sent to lab for cultures aerobic and anaerobic Condition: stable (Patient was given IV vancomycin prior to the procedure and I recommend IV clindamycin and also she may require incision and drainage with irrigation in the OR tomorrow)
--- NOTE | 2017-05-12 23:27 | Emergency Department Note ---
Disposition Clinical Impression: Abscess Disposition: Home, Self-Care Condition: Good General Adult HPI - General Chief complaint: ED Skin/Abscess/Foreign Body Stated complaint: Abscess Neck Source: patient, family Limitations: no limitations Nursing Notes Reviewed: Yes Vital Signs Reviewed: Yes - History of Present Illness HPI Narrative: This is a 32-year-old female presents with polysubstance abuse disorder and extremely large abscess to the left sternocleidomastoid muscle. The abscess is extremely large and extends from the clavicle to the earlobe on the left sternocleidomastoid muscle. Apparently gases been present for 2 weeks. The patient is extremely agitated on arrival and appears to have sympathomimetic toxidrome. Agitated, erratic behavior There is a large abscess with surrounding cellulitis on the left SCM Abdomen is soft and nontender Heart rate is tachycardic without murmur Lungs are clear Extremities are well-perfused Moves all extremities without neurological deficit Medical decision making Findings consistent with large abscess related to IV drug abuse. The patient had extreme agitation and difficulty with pain control. She was given antipsychotic medications with some improvement. I did call our on-call ENT for a stat consult as I was concerned about the extent of this abscess and potential for airway compromise. ENT was available emergently at the bedside for consultation and graciously performed new aspiration with significant reduction in abscess size. This was after a CT scan was performed of the neck which showed a mural enhancing large SCM abscess. Blood cultures were sent but we are only able to get one set of blood cultures. Lactate was elevated which could be related to amphetamine use or underlying sepsis. She does have a penicillin allergy and I would start broad-spectrum coverage with both vancomycin and clindamycin. The patient will be hydrated with normal saline and be admitted to the hospital for further management and possible surgical intervention by ENT as well as treatment of sepsis. I spent greater than 35 minutes of critical care time resuscitating this acutely ill patient suffering form sepsis with abscess. This was excluding billable procedures. Pain Scale: 10 - Related Data Home Medications Medication Instructions Recorded Confirmed Albuterol Sulfate [Ventolin Hfa] 2 puff IH Q4H PRN 01/24/16 02/16/16 Omeprazole [PriLOSEC] 40 mg PO DAILY 01/24/16 02/16/16 Paroxetine HCl [Paxil] 60 mg PO DAILY 01/24/16 02/16/16 Sulfasalazine [Sulfazine] 1,000 mg PO DAILY 01/24/16 02/16/16 diazePAM [Valium] 10 mg PO TID 01/24/16 02/16/16 Gabapentin [Neurontin] 800 mg PO TID 02/16/16 02/16/16 Mometasone/Formoterol [Dulera 100 2 puff IH BID 02/16/16 02/16/16 Mcg/5 Mcg Inhaler] Previous Rx's Medication Instructions Recorded Albuterol Sulfate [Albuterol 2 puff IH Q2HR PRN #0 inhaler 02/18/16 Inhaler] TraZODone 50 mg PO HS PRN #0 tablet 02/18/16 chlorproMAZINE [Thorazine] 25 mg PO 0900,1300,1700 tablet 02/18/16 chlorproMAZINE [Thorazine] 50 mg PO HS tablet 02/18/16 Allergies Allergy/AdvReac Type Severity Reaction Status Date / Time Penicillins Allergy See Verified 10/21/15 01:50 Comments All systems ED: reviewed and negative except as stated. Review of Systems: As Per HPI Past Medical History - Past Medical History Medical history: Reports: fibromyalgia, hepatitis Surgical history: Reports: non-contributory Psychiatric history: Reports: anxiety, depression, other - Social History Smoking Status: Current every day smoker Smokeless Tobacco Status: No Alcohol use: Reports: none Drug use: Reports: opiates, marijuana, IV Drug Use Physical Exam - General Limitations: no limitations General appearance: alert, in no apparent distress Course Vital Signs Temperature 98.2 F 05/12/17 21:22 Pulse Rate 103 05/12/17 21:22 Respiratory Rate 16 05/12/17 21:22 Blood Pressure 145/89 05/12/17 21:22 O2 Sat by Pulse Oximetry 98 05/12/17 21:22 Temperature 98.2 F 05/12/17 21:22 Pulse Rate 84 05/12/17 23:00 Respiratory Rate 16 05/12/17 23:00 Blood Pressure 102/81 05/12/17 23:00 O2 Sat by Pulse Oximetry 95 05/12/17 23:00 Oxygen Delivery Oxygen Delivery Room Air Medical Decision Making - Lab Data Result diagrams: 05/12/17 22:05 05/12/17 22:05 Lab Results 05/12/17 05/12/17 05/12/17 Range/Units 22:05 22:05 22:05 WBC 14.2 H (4.3-11.1) K/mcL RBC 3.43 L (3.82-4.97) M/mcL Hgb 10.1 L (11.5-15.4) g/dL Hct 31.8 L (35.3-44.9) % MCV 92.7 (83.0-100.0) fL MCH 29.4 (28.0-33.3) pg MCHC 31.8 (31.6-35.5) g/dL RDW 14.0 (11.5-14.5) % Plt Count 251 (140-400) K/mcL MPV 11.2 (9.4-12.4) fL Immature Gran % 0.4 (0-4) % Seg Neutrophils % 70.2 % Lymphocytes % 18.2 % Monocytes % 8.4 % Eosinophils % 2.5 % Basophils % 0.3 % Neutrophils # 10.0 H (1.6-8.9) K/mcL Lymphocytes # 2.6 (0.6-4.6) K/mcL Monocytes # 1.2 (0.0-1.3) K/mcL Eosinophils # 0.4 (0.0-0.6) K/mcL Basophils # 0.0 (0.0-0.2) K/mcL ESR (0-15) mm/hr Sodium 139 (136-145) mEq/L Potassium 4.2 (3.5-5.1) mEq/L Chloride 100 (98-107) mEq/L Carbon Dioxide 30 H (23-29) mEq/L BUN 18 (6-20) mg/dL Creatinine 0.92 (0.60-1.20) mg/dL Est GFR ( Amer) > 60 (> 60) Est GFR (Non-Af Amer) > 60 (> 60) BUN/Creatinine Ratio 20 (6-26) Glucose 82 (70-105) mg/dL Calculated Osmolality 289 (280-300) Lactic Acid 3.9 H (0.5-2.2) mmol/L Calcium 9.6 (8.6-10.3) mg/dL Total Bilirubin 0.5 (0.3-1.0) mg/dL AST 26 (13-39) Units/L ALT 27 (7-52) Units/L Alkaline Phosphatase 158 H (34-104) Units/L C-Reactive Protein (Less than 10) mg/L Serum Total Protein 7.6 (6.4-8.9) g/dL Albumin 3.9 (3.5-5.7) g/dL Globulin 3.7 H (2.4-3.5) g/dL Albumin/Globulin Ratio 1.1 (1.1-2.2) 05/12/17 05/12/17 Range/Units 22:05 22:05 WBC (4.3-11.1) K/mcL RBC (3.82-4.97) M/mcL Hgb (11.5-15.4) g/dL Hct (35.3-44.9) % MCV (83.0-100.0) fL MCH (28.0-33.3) pg MCHC (31.6-35.5) g/dL RDW (11.5-14.5) % Plt Count (140-400) K/mcL MPV (9.4-12.4) fL Immature Gran % (0-4) % Seg Neutrophils % % Lymphocytes % % Monocytes % % Eosinophils % % Basophils % % Neutrophils # (1.6-8.9) K/mcL Lymphocytes # (0.6-4.6) K/mcL Monocytes # (0.0-1.3) K/mcL Eosinophils # (0.0-0.6) K/mcL Basophils # (0.0-0.2) K/mcL ESR 64 H (0-15) mm/hr Sodium (136-145) mEq/L Potassium (3.5-5.1) mEq/L Chloride (98-107) mEq/L Carbon Dioxide (23-29) mEq/L BUN (6-20) mg/dL Creatinine (0.60-1.20) mg/dL Est GFR ( Amer) (> 60) Est GFR (Non-Af Amer) (> 60) BUN/Creatinine Ratio (6-26) Glucose (70-105) mg/dL Calculated Osmolality (280-300) Lactic Acid (0.5-2.2) mmol/L Calcium (8.6-10.3) mg/dL Total Bilirubin (0.3-1.0) mg/dL AST (13-39) Units/L ALT (7-52) Units/L Alkaline Phosphatase (34-104) Units/L C-Reactive Protein > 300 H (Less than 10) mg/L Serum Total Protein (6.4-8.9) g/dL Albumin (3.5-5.7) g/dL Globulin (2.4-3.5) g/dL Albumin/Globulin Ratio (1.1-2.2)
[2017-05-13] MEDS: 0.9 % Sodium Chloride 1,000 ML IVC SCH ×3 (00:29→07:57)
[2017-05-13] MEDS: *HR* Enoxaparin 40 MG/0.4 ML SYRINGE SQ SCH (06:41)
[2017-05-13 07:46] LABS: Basophils % 0.2 %; Eosinophils # 0.4 K/mcL (0.0-0.6); Eosinophils % 4.4 %; Hematocrit 28.2 % (35.3-44.9); Hemoglobin 9.1 g/dL (11.5-15.4); Immature Granulocytes % 0.6 % (0-4); Immature Platelets 5.5 % (1.1-6.1); Lymphocytes # 1.9 K/mcL (0.6-4.6); Lymphocytes % 22.6 %; Mean Corpuscular HGB Conc 32.3 g/dL (31.6-35.5); Mean Corpuscular Hemoglobin 29.5 pg (28.0-33.3); Mean Corpuscular Volume 91.6 fL (83.0-100.0); Mean Platelet Volume 11.9 fL (9.4-12.4); Monocytes # 0.8 K/mcL (0.0-1.3); Monocytes % 9.6 %; Nucleated Red Blood Cells 0.4 /100 WBC (0); Platelet Count 212 K/mcL (140-400); Red Blood Count 3.08 M/mcL (3.82-4.97); Red Cell Distribution Width 14.3 % (11.5-14.5); Segmented Neutrophils % 62.6 %
[2017-05-13] MEDS: Clindamycin 900 MG/50 ML 900 MG/50 ML IV.SOLN IVPB SCH ×3 (07:58→23:34)
[2017-05-13 08:07] LABS: Neutrophils # 5.3 K/mcL (1.6-8.9); Platelet Estimate Normal (Normal)
[2017-05-13 08:08] LABS: BUN/Creatinine Ratio 28 (6-26); Blood Urea Nitrogen 16 mg/dL (6-20); Calcium 8.3 mg/dL (8.6-10.3); Carbon Dioxide 23 mEq/L (23-29); Chloride 113 mEq/L (98-107); Glucose 100 mg/dL (70-105); Osmolality,Calculated 293 (280-300); Potassium 4.1 mEq/L (3.5-5.1); Sodium 141 mEq/L (136-145); eGFR For African Americans > 60 (> 60); eGFR For Non-African Americans > 60 (> 60)
--- NOTE | 2017-05-13 16:00 | Internal Med Progress Note ---
Date of Encounter: 05/13/17 Time of Encounter: 15:58 - Assessment and plan (1) Severe sepsis Current Visit: Yes Status: Acute Assessment and plan: 1 secondary to neck abscess Patient is afebrile presented with tachycardia however presently 70-80 sinus rhythm leukocytosis has improved down to 8.4-left sternocleidomastoid abscess secondary to injection of drugs into her neck Blood pressure has been stable continue to monitor Repeat lactate has improved Blood cultures have been drawn-awaiting results We will continue with vancomycin and clindamycin-patient has penicillin allergy ENT has been consulted-appreciate recommendations-according to ENT note she may require I&D with irrigation in the OR today (2) Lactic acidosis Current Visit: Yes Status: Acute Assessment and plan: 1 this has improved lactate 3.9 down to 0.9 we will continue to monitor (3) Neck abscess Current Visit: Yes Status: Acute Assessment and plan: CT revealed greater than 6 cm abscess overlying SCM muscle. ENT did see patient and aspirated and sent for culture foul-smelling purulent drainage-per ENT note We will continue with vancomycin and clindamycin ENT may have to take patient to OR for I&D and irrigation today-continue with nothing by mouth status (4) Hepatitis C Current Visit: Yes Status: Chronic Assessment and plan: This is chronic LFTs are stable we will continue to monitor this time Qualifiers: Viral hepatitis chronicity: chronic Hepatic coma status: without hepatic coma Qualified Code(s): B18.2 - Chronic viral hepatitis C (5) Heroin abuse Current Visit: Yes Status: Chronic Assessment and plan: Consult licensed clinical social worker Monitor for withdrawal (6) Major depression, recurrent Current Visit: Yes Status: Chronic Assessment and plan: -Sitter has been ordered-patient continues to be groggy per previous documentation the patient denied any suicidal or homicidal ideations in the ER Psych consult once patient is more awake Qualifiers: Active/Remission status: currently active Major depression episode severity : moderate Qualified Code(s): F33.1 - Major depressive disorder, recurrent, moderate (7) Polysubstance (including opioids) dependence with physiol dependence Current Visit: Yes Status: Chronic Assessment and plan: We will monitor for drug withdrawal (8) DVT prophylaxis Current Visit: Yes Status: Acute Assessment and plan: Lovenox subcutaneous - Subjective Interval history: Patient is groggy she arouses to verbal stimuli denies any pain or discomfort at this time. Airway is patent no trachea deviation. Denies any difficulty breathing or shortness of breath - Constitutional Vitals: Temp Pulse Resp BP Pulse Ox 97.1 F L 88 16 126/85 96 05/13/17 11:48 05/13/17 11:48 05/13/17 11:48 05/13/17 11:48 05/13/17 11:48 General appearance: Present: A&O X 2, answers questions appropriately Exam: Patient is groggy arouses to verbal stimuli - Head Head exam: Present: atraumatic, normocephalic - Eye Eye exam: Present: PERRL, conjuntiva pink, sclera anicteric Pupils: Present: PERRL - Neck Neck exam general surgery: Present: supple, trachea midline. Absent: lymphadenopathy Additional comments: Left neck wound dressing intact, area is reddened and tender to touch. Trachea is midline with no deviation - Respiratory Respiratory exam: Present: CTAB. Absent: accessory muscle use, rales, rhonchi, wheezes - Cardiovascular Cardiovascular exam: Present: RRR, +S1, +S2. Absent: diastolic murmur, gallop, rubs, systolic murmur - GI/Abdominal GI/Abdominal exam: Present: normal bowel sounds, soft, no peritoneal signs. Absent: distended, tenderness - Extremities Exam Extremities exam: Present: warm, radial pulses palpable and symmetrical. Absent : calf tenderness, cyanotic, pedal edema - Neurological Exam Neurological exam: Present: altered, no focal deficits. Absent: pronater drift , facial droop, speech deficit Additional comments: Patient is groggy arouses to verbal stimuli - Skin Skin exam: Present: dry, intact Internal Medicine: Result - Labs CBC & Chem 7: 05/13/17 07:04 05/13/17 07:04 Labs: Short CBC 05/13/17 Range/Units 07:04 WBC 8.4 (4.3-11.1) K/mcL Hgb 9.1 L (11.5-15.4) g/dL Hct 28.2 L (35.3-44.9) % Plt Count 212 (140-400) K/mcL Neutrophils # 5.3 (1.6-8.9) K/mcL BMP 05/13/17 07:04 Sodium 141 Potassium 4.1 Chloride 113 H Carbon Dioxide 23 BUN 16 Creatinine 0.58 L Glucose 100 Calcium 8.3 L Consult Discharge Plan - Plan Referrals: See Hardy MD [Primary Care Provider] -
--- NOTE | 2017-05-13 17:24 | ENT - Progress Note ---
Date of Encounter: 05/13/17 Time of Encounter: 12:00 - Assessment and Plan (1) Neck abscess Current Visit: Yes Status: Acute Discussed with patient my recommendation for incision and drainage with packing of area of the left neck abscess. A consent was signed and understood including but not limited to the potential complications of infection, bleeding , scar and nerve damage. I have spoken to the OR and will do this early Saturday (05/14) morning. She can eat today and NPO after midnight. Subjective Patient reports: no new complaints Objective Initial Vital Signs Temp Pulse Resp BP Pulse Ox 98.2 F 103 16 145/89 98 05/12/17 21:22 05/12/17 21:22 05/12/17 21:22 05/12/17 21:22 05/12/17 21:22 - Neck other (Area of neck abscess relatively flat but very indurated, purulent/serous fluid expressed.) - Labs 05/13/17 07:04 05/13/17 07:04 Diabetes panel 05/13/17 Range/Units 07:04 Sodium 141 (136-145) mEq/L Potassium 4.1 (3.5-5.1) mEq/L Chloride 113 H (98-107) mEq/L Carbon Dioxide 23 (23-29) mEq/L BUN 16 (6-20) mg/dL Creatinine 0.58 L (0.60-1.20) mg/dL Glucose 100 (70-105) mg/dL Calcium 8.3 L (8.6-10.3) mg/dL Calcium panel 05/13/17 Range/Units 07:04 Calcium 8.3 L (8.6-10.3) mg/dL Pituitary panel 05/13/17 Range/Units 07:04 Sodium 141 (136-145) mEq/L Potassium 4.1 (3.5-5.1) mEq/L Chloride 113 H (98-107) mEq/L Carbon Dioxide 23 (23-29) mEq/L BUN 16 (6-20) mg/dL Creatinine 0.58 L (0.60-1.20) mg/dL Glucose 100 (70-105) mg/dL Calcium 8.3 L (8.6-10.3) mg/dL Adrenal panel 05/13/17 Range/Units 07:04 Sodium 141 (136-145) mEq/L Potassium 4.1 (3.5-5.1) mEq/L Chloride 113 H (98-107) mEq/L Carbon Dioxide 23 (23-29) mEq/L BUN 16 (6-20) mg/dL Creatinine 0.58 L (0.60-1.20) mg/dL Glucose 100 (70-105) mg/dL Calcium 8.3 L (8.6-10.3) mg/dL Consult Discharge Plan - Plan Referrals: See Hardy MD [Primary Care Provider] -
--- NOTE | 2017-05-13 19:06 | Anesthesia Evaluation PreOp ---
Date of Encounter: 05/13/17 Time of Encounter: 19:02 - Past History Planned Operation: I&D Left neck abscess Cardiac History: Denies any Significant Hx Pulmonary History: Smoker FILM PROJECTOR OPERATOR History: Other (major depression (recurrent) - hx of passive suicidal ideation in 2017, which she currently denies) Other Medical History: Hepatic (Hep C), Other (sepsis from neck abscess, heroin addiction and polysubstance abuse (IVDU, meth)) Anesthesia History: No Prior Anesthetic Complications, Past Anesthesia ( cholecystectomy, ankle surgery) Alcohol Use: none Drug use: opiates, marijuana, IV Drug Use Medications and Allergies Albuterol Sulfate [Ventolin Hfa] 2 puff IH Q4H PRN 01/24/16 [History] Omeprazole [PriLOSEC] 40 mg PO DAILY 01/24/16 [History] Paroxetine HCl [Paxil] 60 mg PO DAILY 01/24/16 [History] Sulfasalazine [Sulfazine] 1,000 mg PO DAILY 01/24/16 [History] diazePAM [Valium] 10 mg PO TID 01/24/16 [History] Gabapentin [Neurontin] 800 mg PO TID 02/16/16 [History] Mometasone/Formoterol [Dulera 100 Mcg/5 Mcg Inhaler] 2 puff IH BID 02/16/16 [ History] Albuterol Sulfate [Albuterol Inhaler] 2 puff IH Q2HR PRN #0 inhaler 02/18/16 [Rx ] TraZODone 50 mg PO HS PRN #0 tablet 02/18/16 [Rx] chlorproMAZINE [Thorazine] 25 mg PO 0900,1300,1700 tablet 02/18/16 [Rx] chlorproMAZINE [Thorazine] 50 mg PO HS tablet 02/18/16 [Rx] 3 Allergy/AdvReac Type Severity Reaction Status Date / Time Penicillins Allergy See Verified 10/21/15 01:50 Comments - Meds/Allergy Pre-op Review Medications Reviewed: Yes Allergies Reviewed: Yes Beta Blockers on Current Med List: No Anesthesia Results - Labs 05/13/17 07:04 05/13/17 07:04 - Imaging EKG: report reviewed, image reviewed (SINUS TACHYCARDIA MINIMAL ST DEPRESSION ABNORMAL RHYTHM ECG) Anesthesia Exam Last Vital Signs Temp 97.7 F 05/13/17 19:48 Pulse 74 05/13/17 19:48 Resp 14 05/13/17 19:48 BP 145/87 05/13/17 19:48 Pulse Ox 95 05/13/17 19:48 Weight: 59 kg - HEENT Pupil (Motor): Pupils equal, EOMI Mallampati: II Teeth: Poor dentition Oral Opening: Greater than 3 - FILM PROJECTOR OPERATOR LOC: Oriented - Cardiac Rhythm: Regular Murmur: None - Pulmonary Breath Sounds: bilateral Clear Respiratory Effort: Symmetrical Anesthesia Assess/Plan ASA Score: 3 Modified Jillian Scale for Level of Consciousness: Cooperative, oriented, and tranquil Anesthetic Plan: General Monitoring Plan: Standard Monitors Recovery Plan: PACU
[2017-05-14] MEDS: *HR* Enoxaparin 40 MG/0.4 ML SYRINGE SQ SCH (05:33)
[2017-05-14] MEDS ORDERED: Lidocaine/EPI 1:100k 1% 50 ML VIAL INFILT ONE (07:13)
--- NOTE | 2017-05-14 07:30 | History & Physical Report ---
Date of Encounter: 05/14/17 Time of Encounter: 07:28 24 Hour HP Update - Instructions Instructions: If the History and Physical is less than 30 days old and was completed prior to A.M. admission and or procedure and has NOT been updated on calendar day of procedure please complete this update prior to performing procedure. - Update Patient reports changes in Medical Condition: No Changes in examination, assessment, or condition: No Changes in Medication: No Preop tests/diagnostics Reviewed: Yes Pre-Op MRSA Screen: Negative Surgery Remains Indicated: Yes Consent for Planned Operative Procedure(s) Verified: Yes - Pre-Operative Checklist Preoperative Checklist Indicated: Yes Prophylactic Antibiotic Ordered: No Home Medications Include Beta Beatrice: No Beta Beatrice Taken Today (Day of Surgery): No Beta Beatrice Taken Yesterday (Day Prior to Surgery): No Is VTE Prophylaxis Indicated?: Yes
[2017-05-14] MEDS: Clindamycin 900 MG/50 ML 900 MG/50 ML IV.SOLN IVPB SCH ×2 (07:45→17:11)
[2017-05-14 07:55] LABS: Hematocrit 30.7 % (35.3-44.9); Hemoglobin 9.9 g/dL (11.5-15.4); Mean Corpuscular HGB Conc 32.2 g/dL (31.6-35.5); Mean Corpuscular Hemoglobin 29.3 pg (28.0-33.3); Mean Corpuscular Volume 90.8 fL (83.0-100.0); Monocytes # 0.5 K/mcL (0.0-1.3); Platelet Count 239 K/mcL (140-400); Red Blood Count 3.38 M/mcL (3.82-4.97); Red Cell Distribution Width 14.4 % (11.5-14.5)
--- NOTE | 2017-05-14 07:59 | ENT - Procedure Note ---
Date of procedure: 05/14/17 Pre-op diagnosis: left neck abscess Post-op diagnosis: same Procedure: Debridement and packing of left neck wound. Anesthesia: local Surgeon: Ellyn Bolton Was there an assistant technician present: No Estimated blood loss (cc): 5 Specimens collected: cultures Condition: stable
[2017-05-14] MEDS ORDERED: *HR* Propofol 200 MG/20 ML VIAL IVP ONE (08:04)
[2017-05-14] MEDS ORDERED: *HR* Midazolam HCl 2 MG/2 ML VIAL ONE (08:04)
[2017-05-14] MEDS ORDERED: *HR* FentaNYL (PF) 100 MCG/2 ML VIAL ONE (08:04)
[2017-05-14] MEDS ORDERED: Dexamethasone 4 MG/ML VIAL ONE (08:11)
[2017-05-14] MEDS ORDERED: Ondansetron 4 MG/2 ML VIAL ONE (08:11)
[2017-05-14] MEDS ORDERED: *HR* HYDROcodone/Acet 7.5/325 mg TABLET PO PRN (08:19)
[2017-05-14 08:29] LABS: BUN/Creatinine Ratio 24 (6-26); Blood Urea Nitrogen 11 mg/dL (6-20); Calcium 8.5 mg/dL (8.6-10.3); Carbon Dioxide 23 mEq/L (23-29); Chloride 110 mEq/L (98-107); Glucose 94 mg/dL (70-105); Osmolality,Calculated 283 (280-300); Potassium 3.8 mEq/L (3.5-5.1); Sodium 137 mEq/L (136-145); eGFR For African Americans > 60 (> 60); eGFR For Non-African Americans > 60 (> 60)
[2017-05-14 08:38] LABS: Eosinophils # 0.4 K/mcL (0.0-0.6); Lymphocytes # 1.8 K/mcL (0.6-4.6); Neutrophils # 2.5 K/mcL (1.6-8.9); Platelet Estimate Normal (Normal)
[2017-05-14 08:39] LABS: Polychromasia 1+ (Not Present)
--- NOTE | 2017-05-14 09:11 | Anesthesia Evaluation Post Op ---
Date of Encounter: 05/14/17 Time of Encounter: 09:10 - Vital Signs Vital Signs: Penicillins Allergy (Verified 10/21/15 01:50) See Comments - Lungs Lungs: Clear Ascult./Percussion - Airway Airway: Non-obstructed - Cardiovascular Regular Rate - Mental Status Mental Status: Alert & Oriented, Answers Appropriately - Pain Pain Scale: 3 - Nausea Vomiting Nausea Vomiting: Not Present - Hydration Hydration: Ice chips - Discharge PostOp Status: Transfer Patient to floor
--- NOTE | 2017-05-14 09:25 | Operative Note ---
Date of procedure: 05/14/17 Pre-op diagnosis: Left neck abscess Post-op diagnosis: same Procedure: Debridement and packing of Left neck abscess/wound Implants: none Complications: none Anesthesia: GETA Local Anesthetics: 1% Lidocaine HCL with Epinephrine 1:200,000 SubQ (cc) (10 ml) Surgeon: Ellyn Bolton Was there an specimen preparation assistant present: No Estimated blood loss (cc): 5 Specimen: culture Condition: stable Disposition: PACU Procedure in Detail: The patient's left neck was marked in the surgical hold and then she was brought into the Operating room. A timeout was completed per [facility] protocol. The patient was given general anesthesia with an LMA. I injected 10 ml of 1% lido with epi around the draining site of the left neck. She was then prepped and draped in the usual fashion. I then examined the wound. The neck had an indurated moderately erythematous area of about 6 cm in diameter down to the clavicle. There was a 1 x 2 cm area of necrotic tissue with a hole in the center. I excised the necrotic tissue and then probed the wound. No pus was encountered but I cultured the wound as there were no results available from initial aspiration done in the ED. I then irrigated the pocket and gently opened a few septations. No further pus was obtained and the pocket was relatively superficial to the skin. I packed the wound with 1/4" iodiform gauze. There was approximately 5 ml of venous bleeding. Telfa and dressing was then applied. The patient tolerated the procedure well and was stable to the Recovery Room.
[2017-05-14] MEDS: Acetaminophen 325 MG TABLET PO PRN ×2 (11:00→17:10)
--- NOTE | 2017-05-14 11:03 | Infectious Disease Consult ---
Date of Encounter: 05/14/17 Time of Encounter: 11:00 Assessment and Plan (1) Severe sepsis Status: Acute Assessment and plan: The patient had two SIRS criteria on admission with lactic acidosis. Likely secondary to left neck abscess. Improved. WBC normalized. Tachycardia has resolved. Lactic acidosis has resolved. Blood cultures drawn 05/12/17 are NGTD x 2 sets. (2) Neck abscess Status: Acute Assessment and plan: Causative organism: GCS. Likely secondary to IVDU. The patient reports using the left neck as an injection site. CT neck showed a left neck, predominantly cystic, mass consistent with abscess with involvement of the posterior SCM muscle. ENT consulted. Status post bedside aspiration in the ED on 05/12/17 that yielded ~ 50ml of pus. Status post operative I & D 05/14/17. Operative note reviewed. No pus noted intra- op. Intra-op cultures are pending. The patient has a documented allergy to PCN. Exact reaction unknown. Reports she had "swelling" when she was a baby. Wound care per ENT recommendations. Continue Clindamycin 900mg IV Q8H. Continue Vancomycin IV for now. Pharmacy to dose. Goal trough ~15. Start probiotics. Duration of treatment depends on the clinical picture. Monitor renal function and for drug toxicity and dose-adjust antibiotics. (3) Lactic acidosis Status: Resolved Assessment and plan: Likely secondary to sepsis. Resolved. (4) Tobacco abuse Status: Acute Assessment and plan: Tobacco cessation counseling provided. (5) Crohns disease Status: Chronic Assessment and plan: Takes sulfasalazine. Qualifiers: Gastrointestinal tract location: unspecified location Digestive disease complication type: unspecified complication Qualified Code(s): K50.919 - Crohn 's disease, unspecified, with unspecified complications (6) Hepatitis C Status: Chronic Assessment and plan: Secondary to IVDU. Known Hep C positive. Check HIV status. Qualifiers: Viral hepatitis chronicity: chronic Hepatic coma status: without hepatic coma Qualified Code(s): B18.2 - Chronic viral hepatitis C (7) Major depression, recurrent Status: Chronic Assessment and plan: Psychiatry consulted. Await recommendations. Qualifiers: Active/Remission status: currently active Major depression episode severity : moderate Qualified Code(s): F33.1 - Major depressive disorder, recurrent, moderate (8) Polysubstance (including opioids) dependence with physiol dependence Status: Chronic Infectious Disease HPI - Data of Consult Patient: new to practice Consult date: 05/14/17 Requesting Physician: Delilah Linares CNP Primary Care Provider: See Hardy MD - Consult Narrative Reason for consult: Left neck abscess History of present illness: Ms. Terry is a 32 year old female with a past medical history of hepatitis C secondary to IV drug use, Crohn's disease, fibromyalgia, anxiety, and depression. The patient was admitted to the hospital May 12 for left neck abscess. We are consulted May 14 for antibiotic recommendations for left neck abscess. Briefly, the patient's a 32-year-old female with past medical history as stated above. The patient presented to the emergency department with a one-week history of a left neck abscess. Upon arrival to the ER, the patient was tachycardic and have leukocytosis. Additional laboratory studies reveal a lactic acidosis as well as markedly elevated inflammatory markers. Blood cultures were obtained [address] Soft tissue neck [address] showed a left neck predominantly cystic mass presumably an abscess with posterior sternocleidomastoid muscle involvement. She was CTA of the chest rule out septic emboli and pulmonary embolism that were negative. The patient was evaluated by ENT in the emergency department had underwent a bedside aspiration that diminish the size of the abscess and yielded about 50 mL's of pus. This was sent for culture and came back positive for group C strep. She was started on vancomycin and Clindamycin. She was admitted to the hospital for further evaluation. Since admission, the patient's lactic acidosis has resolved. Her white blood cell count was back to normal. She was taken to the operating room this morning and underwent a debridement with packing of the left neck wound/ abscess. Intraoperative cultures are pending. She continues to be on IV vancomycin and IV clindamycin. We have asked to evaluate and make further recommendations. During my exam today, the patient states that she developed left neck pain, redness, and swelling about a week prior to presentation that progressively worsened. She denies fevers, chills, or rigors. She reports radiation of the pain from the left neck up into her head. She reports some dizziness and intermittent blurred vision as well. She denies congestion, earache, and sore throat. She denies chest pain, shortness of breath, or cough. Denies nausea, vomiting, or diarrhea. States her Crohn's has been well-controlled on her medication. She reports poor appetite. Denies urinary complaints. Denies oral thrush or additional skin lesions. The patient lives at home with her boyfriend. She reports she has been using IV drugs on and off for the past 12 years, but consistently for the past 2 years. She also reports she was taken off her psychiatric medications because her psychiatrist while she was incarcerated and her PCP would not refill her psych medications. She reports smoking about a half a pack of cigarettes per day. She denies alcohol use. She denies any additional infectious diseases except as previously mentioned. CC: Delilah Linares, SHIRA Past Med Surg Social Fam HX - Past Medical History Attestation: Yes The following information was validated with the patient. Source: patient, old records reviewed, nursing notes reviewed Medical history: fibromyalgia, hepatitis (Hep C) Psychiatric history: anxiety, depression, other - Past Surgical History Surgical History: non-contributory - Social History Smoking Status: Current every day smoker Packs per day: 1 Smokeless Tobacco Status: No Alcohol use: none Drug use: opiates, marijuana, IV Drug Use Occupational status: unemployed Current living situation: Home - Independent Activity Level: Independent ambulation Recent Out of Country Travel Within the Last 8 Weeks: No Exposure or Possible Exposure to Illness During Travel: No - Family History Mother History Unknown: Yes Infectious Disease-CN:Meds Albuterol Sulfate [Ventolin Hfa] 2 puff IH Q4H PRN 01/24/16 [History] Omeprazole [PriLOSEC] 40 mg PO DAILY 01/24/16 [History] Paroxetine HCl [Paxil] 60 mg PO DAILY 01/24/16 [History] Sulfasalazine [Sulfazine] 1,000 mg PO DAILY 01/24/16 [History] Gabapentin [Neurontin] 1,200 mg PO TID 02/16/16 [History] Dicyclomine [Bentyl] 10 - 20 mg PO TID PRN 05/14/17 [History] 3 Allergy/AdvReac Type Severity Reaction Status Date / Time Penicillins Allergy See Verified 10/21/15 01:50 Comments All systems: reviewed and no additional remarkable complaints except as stated Exam - Constitutional Vitals: Temp Pulse Resp BP Pulse Ox 97.6 F 76 13 124/87 94 05/14/17 09:27 05/14/17 09:27 05/14/17 09:27 05/14/17 09:27 05/14/17 09:27 General appearance: average body habitus, cooperative, no acute distress Infectious Disease CN: Results - Labs CBC & Chem 7: 05/14/17 06:42 05/14/17 06:42 Cultures: Cultures 05/12/17 22:54 Wound Culture - Final Neck Group C Streptococcus 05/12/17 22:47 Blood Culture - Preliminary Peripheral Venipuncture No growth. 05/12/17 22:05 Blood Culture - Preliminary Peripheral Venipuncture No growth. Serology: Serology 05/14/17 Range/Units 04:14 Urine Test Negative (Negative) Consult Discharge Plan - Plan Referrals: See Hardy MD [Primary Care Provider] - - Attending Attestation I examined this patient and my medical decision-making was reviewed with the Resident Physician. I agree with the documented findings, disposition and treatment plan as described except to the extent set forth below. This is an addendum to original report dictated by Gaby Martinez CNP. Please refer to Maria M note for full detail. Patient is a 35-year-old woman who is allergic to penicillin with angioedema also has hepatitis C his IV drug use or use her neck veins to inject IV drugs. Patient states about 2 weeks ago started having pain and swelling in her neck. Vision eventually had severe pain and swelling and came into the emergency department for evaluation. Patient was noted to have a large abscess that was pretty impressive on the CAT scan. Cultures were obtained by bedside I&D and cultures were noted to be group C streptococcus. Patient was taken to surgery where she had significant I&D. Post op patient seems to be doing okay clinically. We were asked to evaluate the patient and make further recommendations. Currently patient shows to SIRS criteria with us acidosis which put her at severe sepsis, she also has the group C strep. Currently patient on vancomycin and clindamycin, await blood cultures to finalize. We will speak with ENT to see if the patient needs IV antibiotics further recommendations or can just switch her to oral clindamycin she states she is allergic to penicillin. Duration of treatment probably 14 days
--- NOTE | 2017-05-14 12:49 | Consult Note ---
Date of Encounter: 05/14/17 Time of Encounter: 11:50 Assessment & Recommendation (1) Major depression, recurrent Current visit: Yes Status: Chronic Assessment & Recommendation: Recommend continuing Paxil for depression as patient states this is helpful. Since we are at maximum dosage would have to add medication in to help patient with mood symptoms. Consider adding low-dose of Abilify (2mg) for mood stabilization and improvement in depression symptoms. Encouraged patient to consider outpatient counseling and substance abuse treatment as well. Patient has a history of agitation on this admission and history of impulsivity. Would recommend continuing sitter for now. Qualifiers: Active/Remission status: currently active Major depression episode severity : moderate Qualified Code(s): F33.1 - Major depressive disorder, recurrent, moderate (2) Anxiety Current visit: No Status: Acute Assessment & Recommendation: Vistaril as needed for anxiety. The tried Vistaril 25 mg 1-2 capsules when necessary anxiety up to twice a day. We will avoid using controlled substances. (3) Polysubstance (including opioids) dependence with physiol dependence Current visit: Yes Status: Chronic Assessment & Recommendation: Encourage substance abuse treatment once medically stabilized. Monitor for opiate withdrawal and treat symptomatically. History of Present Illness Patient: known to practice within the last 3 years Requesting Physician: Delilah Linares CNP Reason for consult: Stopped psych medications abruptly, opiate dependence History of present illness: Ms. Terry is a 32 year old female with a history of opiate dependence, major depressive disorder, anxiety who presented to the hospital with an abscess. She was apparently very agitated on arrival to the hospital and required hopeful sedating medications in order to help her remain calm. She has a history of IV drug abuse and had an abscess on her neck that required surgical attention. Patient states that she continues to have depression and struggle with anxiety. Since going off her meds from her previous psychiatrist she has not really had a psychiatrist or been taking psych meds as she is supposed to. She has a lot of anxiety she does think that the Paxil is helpful somewhat. She has difficulty sleeping but also admits to chronic drug use up until her arrival to the hospital. She denies auditory or visual hallucinations. She denies obsessions, delusions, paranoia. She does report mood swings and irritability. She would like medication adjustments but does not think that she will need to be hospitalized. "I do not want to hurt myself." Patient is potentially interested in substance abuse and mental health counseling as an outpatient. She has a history of being fairly noncompliant with outpatient treatment. Patient has tried Seroquel, BuSpar, trazodone, Remeron in the past and states that "I do not like those." The most helpful medications for her per patient were Valium and Thorazine as prescribed by her previous doctor. CC: Delilah Linares, SHIRA Past Med Surg Social Fam HX - Past Medical History Medical history: fibromyalgia, hepatitis (Hep C) - Past Psychiatric History Psychiatric history: Reports: prior suicide attempt, previous psychiatric hospitalization Past psychiatric history details: She has a history of admissions to psychiatric hospital for depression, anxiety , opiate dependence. She has 1 suicide attempt in the past after her of a drug overdose. She has long-standing history of outpatient treatment and has largely been noncompliant with this. She has a history of polysubstance abuse and IV drug abuse. Family psychiatric history: No Family History of Suicide: None - Past Surgical History Surgical History: non-contributory - Social History Smoking Status: Current every day smoker Smokeless Tobacco Status: No Alcohol use: none Drug use: opiates, marijuana, IV Drug Use Occupational status: unemployed Activity Level: Independent ambulation - Family History Mother History Unknown: Yes Medications & Allergies Albuterol Sulfate [Ventolin Hfa] 2 puff IH Q4H PRN 01/24/16 [History] Omeprazole [PriLOSEC] 40 mg PO DAILY 01/24/16 [History] Paroxetine HCl [Paxil] 60 mg PO DAILY 01/24/16 [History] Sulfasalazine [Sulfazine] 1,000 mg PO DAILY 01/24/16 [History] Gabapentin [Neurontin] 1,200 mg PO TID 02/16/16 [History] Dicyclomine [Bentyl] 10 - 20 mg PO TID PRN 05/14/17 [History] 3 Allergy/AdvReac Type Severity Reaction Status Date / Time Penicillins Allergy See Verified 10/21/15 01:50 Comments Review of Systems Constitutional: Denies: fever, chills, weakness, weight change Eyes: Denies: eye pain, vision change Ears, Nose, Throat: Denies: ear pain, throat pain, dental pain, hearing loss, congestion Cardiovascular: Denies: chest pain, palpitations, dyspnea on exertion Respiratory: Denies: cough, dyspnea, wheezes Gastrointestinal: Denies: abdominal pain, nausea, vomiting, diarrhea, constipation Genitourinary female: Denies: urgency, dysuria, frequency, abnormal menses, dyspareunia Musculoskeletal: Reports: joint pain Integumentary: Denies: rash, lesions, pruritus Neurological: Denies: headache, weakness, numbness, memory loss Psychiatric: Reports: depression, anxiety, abnormal sleep pattern, difficulty concentrating, irritability, mood swings, panic attacks. Denies: suicidal ideation, auditory hallucinations, visual hallucinations, hopelessness Endocrine: Denies: fatigue, heat or cold intolerance Hematologic/Lymphatic: Denies: easy bruising, lymphadenopathy Allergic/Immunologic: Denies: urticaria, itchy eyes Psychiatry Exam - Constitutional Vitals: Temp Pulse Resp BP Pulse Ox 97.6 F 62 14 130/89 96 05/14/17 09:27 05/14/17 12:30 05/14/17 12:30 05/14/17 12:30 05/14/17 12:30 General appearance: unkempt - Musculoskeletal Gait: other (Patient is lying in bed) Station: relaxed Strength & Tone: normal for patient - Psychiatric Patient Orientation: Yes Person, Yes Place, Yes Circumstance Level of alertness: Alert Behavior: calm, cooperative Psychomotor activity: Normal Eye Contact: Minimal Contact Mood Description: Depressed, Anxious Affect description: congruent with mood Speech Volume: Normal Speech pattern: normal rate, normal rhythm, normal tone Language & Vocabulary: consistent with education Thought Process: Intact, Goal Oriented Thought Content: No Suicidal ideation, No Homicidal ideation Perceptual Disturbances: No Auditory hallucinations, No Visual hallucinations Attention Span Ability: Capable of Focused Attention Memory Description: Grossly Intact Patient Reliability: Reliable Historian Fund of knowledge: Yes abstraction ability, Yes aware of current events Intelligence Estimate: Average Judgment: Limited Insight: Partial Results - Labs Labs: Laboratory Last Values WBC 5.2 K/mcL (4.3-11.1) 05/14/17 06:42 RBC 3.38 M/mcL (3.82-4.97) L 05/14/17 06:42 Hgb 9.9 g/dL (11.5-15.4) L 05/14/17 06:42 Hct 30.7 % (35.3-44.9) L 05/14/17 06:42 MCV 90.8 fL (83.0-100.0) 05/14/17 06:42 MCH 29.3 pg (28.0-33.3) 05/14/17 06:42 MCHC 32.2 g/dL (31.6-35.5) 05/14/17 06:42 RDW 14.4 % (11.5-14.5) 05/14/17 06:42 Plt Count 239 K/mcL (140-400) 05/14/17 06:42 MPV 12.0 fL (9.4-12.4) 05/14/17 06:42 Immature Gran % 0.6 % (0-4) 05/13/17 07:04 Seg Neutrophils % 46.0 % 05/14/17 06:42 Band Neutrophils % 2.0 % (0-4) 05/14/17 06:42 Lymphocytes % 34.0 % 05/14/17 06:42 Monocytes % 10.0 % 05/14/17 06:42 Eosinophils % 8.0 % 05/14/17 06:42 Basophils % 0.2 % 05/13/17 07:04 Neutrophils # 2.5 K/mcL (1.6-8.9) 05/14/17 06:42 Lymphocytes # 1.8 K/mcL (0.6-4.6) 05/14/17 06:42 Monocytes # 0.5 K/mcL (0.0-1.3) 05/14/17 06:42 Eosinophils # 0.4 K/mcL (0.0-0.6) 05/14/17 06:42 Basophils # 0.0 K/mcL (0.0-0.2) 05/13/17 07:04 Nucleated RBCs/100 WBC 0.4 /100 WBC (0) H 05/13/17 07:04 Platelet Estimate Normal (Normal) 05/14/17 06:42 Immature Plt Fraction 5.5 % (1.1-6.1) 05/13/17 07:04 Polychromasia 1+ (Not Present) A 05/14/17 06:42 ESR 64 mm/hr (0-15) H 05/12/17 22:05 Sodium 137 mEq/L (136-145) 05/14/17 06:42 Potassium 3.8 mEq/L (3.5-5.1) 05/14/17 06:42 Chloride 110 mEq/L (98-107) H 05/14/17 06:42 Carbon Dioxide 23 mEq/L (23-29) 05/14/17 06:42 BUN 11 mg/dL (6-20) 05/14/17 06:42 Creatinine 0.45 mg/dL (0.60-1.20) L 05/14/17 06:42 Est GFR ( Amer) > 60 (> 60) 05/14/17 06:42 Est GFR (Non-Af Amer) > 60 (> 60) 05/14/17 06:42 BUN/Creatinine Ratio 24 (6-26) 05/14/17 06:42 Glucose 94 mg/dL (70-105) 05/14/17 06:42 POC Glucose 87 mg/dL (58-89) 05/13/17 17:30 Calculated Osmolality 283 (280-300) 05/14/17 06:42 Lactic Acid 0.9 mmol/L (0.5-2.2) 05/13/17 06:59 Calcium 8.5 mg/dL (8.6-10.3) L 05/14/17 06:42 Magnesium 2.0 mg/dL (1.6-2.6) 05/13/17 07:04 Total Bilirubin 0.5 mg/dL (0.3-1.0) 05/12/17 22:05 AST 26 Units/L (13-39) 05/12/17 22:05 ALT 27 Units/L (7-52) 05/12/17 22:05 Alkaline Phosphatase 158 Units/L (34-104) H 05/12/17 22:05 C-Reactive Protein > 300 mg/L (Less than 10) H 05/12/17 22:05 Serum Total Protein 7.6 g/dL (6.4-8.9) 05/12/17 22:05 Albumin 3.9 g/dL (3.5-5.7) 05/12/17 22:05 Globulin 3.7 g/dL (2.4-3.5) H 05/12/17 22:05 Albumin/Globulin Ratio 1.1 (1.1-2.2) 05/12/17 22:05 Urine Test Negative (Negative) 05/14/17 04:14 Vancomycin Trough 10 mcg/mL (5-10) 05/14/17 09:39 Consult Discharge Plan - Plan Referrals: See Hardy MD [Primary Care Provider] -
--- NOTE | 2017-05-14 16:35 | ENT - Progress Note ---
Date of Encounter: 05/14/17 Time of Encounter: 16:33 - Assessment and Plan (1) Neck abscess Current Visit: Yes Status: Acute Stable, will plan on somewhat advancing the gauze packing tomorrow and consulting wound care team. I appreciate the help with pain management from the Hospitalist team. Subjective Patient reports: no new complaints, still having pain Objective Initial Vital Signs Temp Pulse Resp BP Pulse Ox 98.2 F 103 16 145/89 98 05/12/17 21:22 05/12/17 21:22 05/12/17 21:22 05/12/17 21:22 05/12/17 21:22 - Neck other (dressing intact without significant blood) - Labs 05/14/17 06:42 05/14/17 06:42 Diabetes panel 05/14/17 Range/Units 06:42 Sodium 137 (136-145) mEq/L Potassium 3.8 (3.5-5.1) mEq/L Chloride 110 H (98-107) mEq/L Carbon Dioxide 23 (23-29) mEq/L BUN 11 (6-20) mg/dL Creatinine 0.45 L (0.60-1.20) mg/dL Glucose 94 (70-105) mg/dL Calcium 8.5 L (8.6-10.3) mg/dL Calcium panel 05/14/17 Range/Units 06:42 Calcium 8.5 L (8.6-10.3) mg/dL Pituitary panel 05/14/17 Range/Units 06:42 Sodium 137 (136-145) mEq/L Potassium 3.8 (3.5-5.1) mEq/L Chloride 110 H (98-107) mEq/L Carbon Dioxide 23 (23-29) mEq/L BUN 11 (6-20) mg/dL Creatinine 0.45 L (0.60-1.20) mg/dL Glucose 94 (70-105) mg/dL Calcium 8.5 L (8.6-10.3) mg/dL Adrenal panel 05/14/17 Range/Units 06:42 Sodium 137 (136-145) mEq/L Potassium 3.8 (3.5-5.1) mEq/L Chloride 110 H (98-107) mEq/L Carbon Dioxide 23 (23-29) mEq/L BUN 11 (6-20) mg/dL Creatinine 0.45 L (0.60-1.20) mg/dL Glucose 94 (70-105) mg/dL Calcium 8.5 L (8.6-10.3) mg/dL Consult Discharge Plan - Plan Referrals: See Hardy MD [Primary Care Provider] -
--- NOTE | 2017-05-14 16:40 | Internal Med Progress Note ---
Date of Encounter: 05/14/17 Time of Encounter: 16:38 - Assessment and plan (1) Heroin abuse Current Visit: Yes Status: Chronic Assessment and plan: Recommend outpatient treatment per psychiatry (2) Hepatitis C Current Visit: Yes Status: Chronic Assessment and plan: Secondary to IV drug use, known hep C positive, infectious disease recommends checking HIV status Qualifiers: Viral hepatitis chronicity: chronic Hepatic coma status: without hepatic coma Qualified Code(s): B18.2 - Chronic viral hepatitis C (3) Major depression, recurrent Current Visit: Yes Status: Chronic Assessment and plan: Psychiatric consult. Appreciate input and assistance with this patient. Will add Abilify 2 mg per your recommendations and continue Paxil at max dose. We will encourage patient toward outpatient counseling and substance abuse treatment Continue sitter at this time for impulsivity but psychiatrist stated she is not a threat to herself or others so if she decides to leave AGAINST MEDICAL ADVICE we cannot hold her. Qualifiers: Active/Remission status: currently active Major depression episode severity : moderate Qualified Code(s): F33.1 - Major depressive disorder, recurrent, moderate (4) Polysubstance (including opioids) dependence with physiol dependence Current Visit: Yes Status: Chronic Assessment and plan: Psychiatrist recommends outpatient substance abuse treatment Monitor for withdrawal (5) Severe sepsis Current Visit: Yes Status: Acute Assessment and plan: Patient met 2 SIRS criteria on admission with lactic acidosis likely secondary to the left neck abscess Patient has improved with normalized WBCs. Tachycardia has resolved as well as lactic acidosis. Blood cultures drawn sets are no growth to date. (6) Lactic acidosis Current Visit: Yes Status: Resolved (7) Neck abscess Current Visit: Yes Status: Acute Assessment and plan: Appreciate ENT and infectious disease help with this patient. Causative organism is GCS likely secondary to IV drug use. Patient reported using a left neck as an injection site. CT of the neck revealed a left neck predominantly cystic mass consistent with abscess with involvement of posterior SCM muscle. ENT was consult dated with bedside aspiration the ED on 05/12/17 that yielded 50 and mouth of pus. On went to the OR for post operative I&D. Operative note was reviewed with no pus intraoperatively but interop cultures are pending. The wound has been packed and is covered. ENT plans to consult wound therapy. Patient has lifelong allergy to penicillin without exact reactions known. Continue clindamycin at 900 mg IV every 8 hours and vancomycin with pharmacy to dose with a goal trough of 15. Start probiotics Duration of treatment depends on clinical picture per IDs note. Monitor renal function and for drug toxicity. Dose adjust antibiotics. (8) DVT prophylaxis Current Visit: Yes Status: Acute Assessment and plan: Continue Lovenox subcutaneous (9) Tobacco abuse Current Visit: Yes Status: Acute Assessment and plan: Cessation advised (10) Crohns disease Current Visit: No Status: Chronic Assessment and plan: Patient takes sulfasalazine Qualifiers: Gastrointestinal tract location: unspecified location Digestive disease complication type: unspecified complication Qualified Code(s): K50.919 - Crohn 's disease, unspecified, with unspecified complications - Time Spent With Patient Total time spent is greater than 50% in coordination of care (as documented) at patient's floor/unit and/or counseling patient: - Subjective Interval history: Patient was rather lethargic. She opened her eyes to verbal stimuli and was minimally responsive. Vital signs are stable. She is denying any pain at this time. - Constitutional Vitals: Temp Pulse Resp BP Pulse Ox 97.6 F 62 14 130/89 96 05/14/17 09:27 05/14/17 12:30 05/14/17 12:30 05/14/17 12:30 05/14/17 12:30 General appearance: Present: cooperative, disheveled, A&O X 2 - Head Head exam: Present: atraumatic, normocephalic - Eye Eye exam: Present: PERRL, conjuntiva pink, sclera anicteric Pupils: Present: PERRL - Neck Neck exam general surgery: Present: supple, trachea midline. Absent: lymphadenopathy Additional comments: Large dressing intact to her left neck. No drainage noted on the dressing. - Respiratory Respiratory exam: Present: CTAB. Absent: accessory muscle use, rales, rhonchi, wheezes - Cardiovascular Cardiovascular exam: Present: RRR, +S1, +S2. Absent: diastolic murmur, gallop, rubs, systolic murmur, tachycardia - GI/Abdominal GI/Abdominal exam: Present: normal bowel sounds, soft, no peritoneal signs. Absent: distended, tenderness - Extremities Exam Extremities exam: Present: warm, radial pulses palpable and symmetrical. Absent : calf tenderness, cyanotic, pedal edema - Neurological Exam Neurological exam: Present: CN II-XII intact, oriented X3, no focal deficits. Absent: pronater drift, facial droop, speech deficit - Skin Skin exam: Present: dry, intact, normal color, warm Internal Medicine: Result - Labs CBC & Chem 7: 05/14/17 06:42 05/14/17 06:42 Labs: Short CBC 05/14/17 Range/Units 06:42 WBC 5.2 (4.3-11.1) K/mcL Hgb 9.9 L (11.5-15.4) g/dL Hct 30.7 L (35.3-44.9) % Plt Count 239 (140-400) K/mcL Neutrophils # 2.5 (1.6-8.9) K/mcL BMP 05/14/17 06:42 Sodium 137 Potassium 3.8 Chloride 110 H Carbon Dioxide 23 BUN 11 Creatinine 0.45 L Glucose 94 Calcium 8.5 L Consult Discharge Plan - Plan Referrals: See Hardy MD [Primary Care Provider] -
[2017-05-14] MEDS ORDERED: hydrOXYzine pamoate 25 MG CAPSULE PO PRN (17:15)
[2017-05-14] MEDS: ARIPiprazole 2 MG TABLET PO SCH (22:08)
[2017-05-15] MEDS: Clindamycin 900 MG/50 ML 900 MG/50 ML IV.SOLN IVPB SCH ×3 (00:54→16:30)
[2017-05-15] MEDS: Acetaminophen 325 MG TABLET PO PRN (04:41)
[2017-05-15] MEDS: *HR* Enoxaparin 40 MG/0.4 ML SYRINGE SQ SCH (04:43)
[2017-05-15 07:19] LABS: Basophils % 0.5 %; Eosinophils # 0.3 K/mcL (0.0-0.6); Eosinophils % 4.3 %; Hematocrit 31.4 % (35.3-44.9); Hemoglobin 10.3 g/dL (11.5-15.4); Immature Granulocytes % 0.8 % (0-4); Lymphocytes # 3.1 K/mcL (0.6-4.6); Lymphocytes % 39.8 %; Mean Corpuscular HGB Conc 32.8 g/dL (31.6-35.5); Mean Corpuscular Hemoglobin 29.3 pg (28.0-33.3); Mean Corpuscular Volume 89.2 fL (83.0-100.0); Mean Platelet Volume 11.5 fL (9.4-12.4); Monocytes # 0.6 K/mcL (0.0-1.3); Neutrophils # 3.6 K/mcL (1.6-8.9); Platelet Count 280 K/mcL (140-400); Red Blood Count 3.52 M/mcL (3.82-4.97); Red Cell Distribution Width 14.2 % (11.5-14.5); Segmented Neutrophils % 46.6 %
[2017-05-15] MEDS ORDERED: Aminoglycoside Consult 1 EACH MC ONE (07:25)
[2017-05-15 07:40] LABS: BUN/Creatinine Ratio 10 (6-26); Blood Urea Nitrogen 5 mg/dL (6-20); Calcium 8.9 mg/dL (8.6-10.3); Carbon Dioxide 21 mEq/L (23-29); Chloride 109 mEq/L (98-107); Glucose 82 mg/dL (70-105); Osmolality,Calculated 282 (280-300); Potassium 3.8 mEq/L (3.5-5.1); Sodium 138 mEq/L (136-145); eGFR For African Americans > 60 (> 60); eGFR For Non-African Americans > 60 (> 60)
[2017-05-15 08:05] LABS: Platelet Estimate Normal (Normal)
--- NOTE | 2017-05-15 08:08 | ENT - Progress Note ---
Date of Encounter: 05/15/17 Time of Encounter: 08:05 - Assessment and Plan (1) Neck abscess Current Visit: Yes Status: Acute Stable, Noted Strep C on culture. Will plan removing the rest of the packing tomorrow morning. Recommend consultation with wound care team and possible nurse to her home for wound care upon discharge. From the ENT standpoint she will likely be ready for D/C tomorrow. Subjective Patient reports: no new complaints Objective Initial Vital Signs Temp Pulse Resp BP Pulse Ox 98.2 F 103 16 145/89 98 05/12/17 21:22 05/12/17 21:22 05/12/17 21:22 05/12/17 21:22 05/12/17 21:22 - General physical appearance no distress - Neck other (Removed the dressing and about 1/3 of the packing from the left neck wound. No acute bleeding, wound is flat with significant decrease in surrounding erythema) - Labs 05/15/17 06:46 05/15/17 06:46 Diabetes panel 05/14/17 05/15/17 Range/Units 06:42 06:46 Sodium 137 138 (136-145) mEq/L Potassium 3.8 3.8 (3.5-5.1) mEq/L Chloride 110 H 109 H (98-107) mEq/L Carbon Dioxide 23 21 L (23-29) mEq/L BUN 11 5 L (6-20) mg/dL Creatinine 0.45 L 0.48 L (0.60-1.20) mg/dL Glucose 94 82 (70-105) mg/dL Calcium 8.5 L 8.9 (8.6-10.3) mg/dL Calcium panel 05/14/17 05/15/17 Range/Units 06:42 06:46 Calcium 8.5 L 8.9 (8.6-10.3) mg/dL Pituitary panel 05/14/17 05/15/17 Range/Units 06:42 06:46 Sodium 137 138 (136-145) mEq/L Potassium 3.8 3.8 (3.5-5.1) mEq/L Chloride 110 H 109 H (98-107) mEq/L Carbon Dioxide 23 21 L (23-29) mEq/L BUN 11 5 L (6-20) mg/dL Creatinine 0.45 L 0.48 L (0.60-1.20) mg/dL Glucose 94 82 (70-105) mg/dL Calcium 8.5 L 8.9 (8.6-10.3) mg/dL Adrenal panel 05/14/17 05/15/17 Range/Units 06:42 06:46 Sodium 137 138 (136-145) mEq/L Potassium 3.8 3.8 (3.5-5.1) mEq/L Chloride 110 H 109 H (98-107) mEq/L Carbon Dioxide 23 21 L (23-29) mEq/L BUN 11 5 L (6-20) mg/dL Creatinine 0.45 L 0.48 L (0.60-1.20) mg/dL Glucose 94 82 (70-105) mg/dL Calcium 8.5 L 8.9 (8.6-10.3) mg/dL Consult Discharge Plan - Plan Referrals: See Hardy MD [Primary Care Provider] -
--- NOTE | 2017-05-15 11:13 | Infectious Disease Progress No ---
Date of Encounter: 05/15/17 Time of Encounter: 11:11 - Assessment and Plan (1) Severe sepsis Current Visit: Yes Status: Acute The patient had two SIRS criteria on admission with lactic acidosis. Likely secondary to left neck abscess. Improved. WBC normalized. Tachycardia has resolved. Lactic acidosis has resolved. Blood cultures drawn 05/12/17 are NGTD x 2 sets. (2) Neck abscess Current Visit: Yes Status: Acute Causative organism: GCS. Likely secondary to IVDU. The patient reports using the left neck as an injection site. CT neck showed a left neck, predominantly cystic, mass consistent with abscess with involvement of the posterior SCM muscle. ENT consulted. Status post bedside aspiration in the ED on 05/12/17 that yielded ~ 50ml of pus. Status post operative I & D 05/14/17. Operative note reviewed. No pus noted intra- op. Intra-op cultures are pending. I spoke with Dr. Bolton who states there was a large amount of necrosis in the wound bed, but this was debrided and there was not any pus at the time of surgery. She also said the wound was very superficial and did not appear to invade the deep neck space or involve the carotid artery. The patient has a documented allergy to PCN. Exact reaction unknown. Reports she had "swelling" when she was a baby. Wound care per ENT recommendations. Continue Clindamycin 900mg IV Q8H. Discontinue Vancomycin. Start probiotics. Duration of treatment depends on the clinical picture, but likely a total of 14 days from the date of surgery. Can likely switch to PO antibiotics when ready for discharge. Monitor renal function and for drug toxicity and dose-adjust antibiotics. (3) Lactic acidosis Current Visit: Yes Status: Resolved Likely secondary to sepsis. Resolved. (4) Tobacco abuse Current Visit: Yes Status: Acute Tobacco cessation counseling provided. (5) Crohns disease Current Visit: No Status: Chronic Takes sulfasalazine. Qualifiers: Gastrointestinal tract location: unspecified location Digestive disease complication type: unspecified complication Qualified Code(s): K50.919 - Crohn 's disease, unspecified, with unspecified complications (6) Hepatitis C Current Visit: Yes Status: Chronic Secondary to IVDU. Known Hep C positive. Check HIV status. Qualifiers: Viral hepatitis chronicity: chronic Hepatic coma status: without hepatic coma Qualified Code(s): B18.2 - Chronic viral hepatitis C (7) Major depression, recurrent Current Visit: Yes Status: Chronic Psychiatry consulted. Qualifiers: Active/Remission status: currently active Major depression episode severity : moderate Qualified Code(s): F33.1 - Major depressive disorder, recurrent, moderate (8) Polysubstance (including opioids) dependence with physiol dependence Current Visit: Yes Status: Chronic - Subjective Interval history: Patient seen and examined. No acute events noted overnight. Patient states overall she feels better today. States she has less pain at the surgical site, but still has some difficulty donning and with range of motion. Denies any fevers or chills or rigors. Denies any chest pain, shortness of breath, or cough. Denies any nausea, vomiting, diarrhea, or constipation. She states she does not have much of an appetite and did not eat any breakfast this morning. She is requesting to remain on a full liquid diet to prevent a flare of her Crohn's while she is off her sulfasalazine. She denies any urinary complaints or abdominal pain. She denies any oral thrush or new skin lesions. Infect Dis PN-Objective Data - Labs CBC & Chem 7: 05/15/17 06:46 05/15/17 06:46 Labs: Laboratory Results - last 24 hr 05/14/17 05/15/17 05/15/17 05:52 06:46 06:46 WBC 7.7 RBC 3.52 L Hgb 10.3 L Hct 31.4 L MCV 89.2 MCH 29.3 MCHC 32.8 RDW 14.2 Plt Count 280 MPV 11.5 Immature Gran % 0.8 Seg Neutrophils % 46.6 Lymphocytes % 39.8 Monocytes % 8.0 Eosinophils % 4.3 Basophils % 0.5 Neutrophils # 3.6 Lymphocytes # 3.1 Monocytes # 0.6 Eosinophils # 0.3 Basophils # 0.0 Platelet Estimate Normal Sodium 138 Potassium 3.8 Chloride 109 H Carbon Dioxide 21 L BUN 5 L Creatinine 0.48 L Est GFR ( Amer) > 60 Est GFR (Non-Af Amer) > 60 BUN/Creatinine Ratio 10 Glucose 82 POC Glucose 90 H Calculated Osmolality 282 Calcium 8.9 Cultures: Cultures 05/14/17 Unknown Surgical Biopsy Culture - Preliminary Neck Serology 05/14/17 Range/Units 04:14 Urine Test Negative (Negative) Exam - Constitutional Vitals: Temp Pulse Resp BP Pulse Ox 97.5 F L 101 18 129/80 97 05/15/17 10:44 05/15/17 10:44 05/15/17 10:44 05/15/17 10:44 05/15/17 06:54 General appearance: average body habitus, cooperative, no acute distress - Head Head exam: Present: atraumatic, normal inspection, normocephalic - Eye Eye exam: Present: EOMI, normal appearance, PERRL Pupils: Present: normal accommodation - ENT ENT exam: Present: mucous membranes moist - Neck Neck exam: Absent: normal inspection (Left neck dressing C/D/I. ROM limited due to pain.) - Respiratory Respiratory exam: Present: CTAB. Absent: rales, respiratory distress, rhonchi, wheezes - Cardiovascular Cardiovascular exam: Present: RRR, +S1, +S2 - GI/Abdominal GI/Abdominal exam: Present: normal bowel sounds, soft. Absent: distended, tenderness - Extremities Exam Extremities exam: Present: normal inspection. Absent: joint swelling, pedal edema, tenderness - Neurological Exam Neurological exam: Present: alert, oriented X3, no focal deficits - Psychiatric Psychiatric exam: Present: normal affect, normal mood - Skin Skin exam: Present: dry, intact, normal color, warm Consult Discharge Plan - Plan Referrals: See Hardy MD [Primary Care Provider] - - Attending Attestation I examined this patient and my medical decision-making was reviewed with the Resident Physician. I agree with the documented findings, disposition and treatment plan as described except to the extent set forth below.
--- NOTE | 2017-05-15 11:15 | Psychiatry Progress Note ---
Date of Encounter: 05/15/17 Time of Encounter: 12:10 Subjective Interval history: Gaby is seen today for follow-up of depression, anxiety, opiate dependence and withdrawal. She has been agitated today because her pain is under control. She reports she is shaky and thinks that she is withdrawing from opiates. She feels she is having some nausea, diarrhea, muscle shakes and muscle aches. Patient denies suicidal or homicidal ideation, intent, or plan. She is looking forward to potentially leaving the hospital tomorrow with by mouth antibiotics. She is willing to cooperate with staff and follow instructions by her primary team. Patient would like to have some medication to help with opiate withdrawal. She is having difficulty sleeping secondary to withdrawal symptoms as well as pain. She denies auditory or visual hallucinations and is calm and cooperative with this interviewer. Review of Systems Gastrointestinal: Reports: nausea, diarrhea Musculoskeletal: Reports: joint pain, myalgia Neurological: Reports: headache Psychiatric: Reports: anxiety, abnormal sleep pattern, difficulty concentrating , irritability, mood swings. Denies: suicidal ideation, auditory hallucinations , visual hallucinations, hopelessness Results - Vital Signs Vital Signs: Temp Pulse Resp BP Pulse Ox 97.5 F L 101 18 129/80 97 05/15/17 10:44 05/15/17 10:44 05/15/17 10:44 05/15/17 10:44 05/15/17 06:54 - Labs Labs: Laboratory Results - last 24 hr 05/14/17 05/15/17 05/15/17 05:52 06:46 06:46 WBC 7.7 RBC 3.52 L Hgb 10.3 L Hct 31.4 L MCV 89.2 MCH 29.3 MCHC 32.8 RDW 14.2 Plt Count 280 MPV 11.5 Immature Gran % 0.8 Seg Neutrophils % 46.6 Lymphocytes % 39.8 Monocytes % 8.0 Eosinophils % 4.3 Basophils % 0.5 Neutrophils # 3.6 Lymphocytes # 3.1 Monocytes # 0.6 Eosinophils # 0.3 Basophils # 0.0 Platelet Estimate Normal Sodium 138 Potassium 3.8 Chloride 109 H Carbon Dioxide 21 L BUN 5 L Creatinine 0.48 L Est GFR ( Amer) > 60 Est GFR (Non-Af Amer) > 60 BUN/Creatinine Ratio 10 Glucose 82 POC Glucose 90 H Calculated Osmolality 282 Calcium 8.9 Assessment and Plan (1) Major depression, recurrent Current visit: Yes Status: Chronic Plan: Continue hospitalization, Close observation, Suicide Precautions per unit protocol, Encourage participation in unit milieu, Group Therapy, Monitor sleep, Monitor appetite Additional Plan: Patient is currently only taking Paxil 30 mg. We can potentially increase this to 60mg for maximum benefit. Risks, benefits, side effects, alternatives discussed w/pt: Yes Patient agreeable to treatment: Yes Qualifiers: Active/Remission status: currently active Major depression episode severity : moderate Qualified Code(s): F33.1 - Major depressive disorder, recurrent, moderate (2) Anxiety Current visit: No Status: Acute (3) Polysubstance (including opioids) dependence with physiol dependence Current visit: Yes Status: Chronic (4) Opiate withdrawal Current visit: Yes Status: Acute Plan: Continue hospitalization Additional Plan: Consider clonidine 0.1 mg by mouth daily at bedtime depending on patient's blood pressure. Also can use Vistaril up to 3 times a day for anxiety and agitation. We can also symptomatically treat nausea and diarrhea if patient is still having these issues. Attempted to educate patient on the need to avoid using pain meds and the situation. Consider doxepin 25-50 mg at bedtime for sleep if needed. Consult Discharge Plan - Plan Referrals: See Hardy MD [Primary Care Provider] - Psychiatry Exam - Constitutional Vitals: Temp Pulse Resp BP Pulse Ox 97.5 F L 101 18 129/80 97 05/15/17 10:44 05/15/17 10:44 05/15/17 10:44 05/15/17 10:44 05/15/17 06:54 General appearance: unkempt, average - Musculoskeletal Gait: slow Station: stooped Strength & Tone: normal for patient - Psychiatric Patient Orientation: Yes Person, Yes Time, Yes Place, Yes Circumstance Level of alertness: Alert Behavior: cooperative, anxious Psychomotor activity: Normal Eye Contact: Minimal Contact Mood Description: Irritable, Other (Angry) Affect description: congruent with mood Speech Volume: Normal Speech pattern: normal rate, normal rhythm, normal tone Language & Vocabulary: consistent with education Thought Process: Intact, Logical, Goal Oriented Thought Content: No Suicidal ideation, No Homicidal ideation, No Overt delusions Perceptual Disturbances: No Auditory hallucinations, No Visual hallucinations Attention Span Ability: Capable of Focused Attention Memory Description: Grossly Intact Patient Reliability: Reliable Historian Fund of knowledge: Yes abstraction ability, Yes aware of current events Intelligence Estimate: Average Judgment: Limited Insight: Minimal
[2017-05-15] MEDS ORDERED: Ondansetron 4 MG/2 ML VIAL IVP ONE (11:27)
[2017-05-15] MEDS ORDERED: Ondansetron 4 MG/2 ML VIAL ONE (11:29)
[2017-05-15] MEDS: Lactobacillus 1 EACH CAP.SPRINK PO SCH (12:57)
[2017-05-15] MEDS: hydrOXYzine pamoate 25 MG CAPSULE PO PRN (14:20)
[2017-05-15] MEDS: Ondansetron ODT 4 MG TAB.RAPDIS SL PRN ×2 (14:21→18:53)
[2017-05-15] MEDS: *HR* LORazepam 2 MG/ML VIAL IVP PRN (18:56)
--- NOTE | 2017-05-15 19:00 | Internal Med Progress Note ---
Date of Encounter: 05/15/17 Time of Encounter: 18:57 - Assessment and plan (1) Heroin abuse Current Visit: Yes Status: Chronic Assessment and plan: Recommend outpatient psychiatric and rehabilitation treatment per psychiatry (2) Hepatitis C Current Visit: Yes Status: Chronic Assessment and plan: Secondary to IV drug use, known hep C positive, infectious disease recommended checking HIV status which is nonreactive Qualifiers: Viral hepatitis chronicity: chronic Hepatic coma status: without hepatic coma Qualified Code(s): B18.2 - Chronic viral hepatitis C (3) Major depression, recurrent Current Visit: Yes Status: Chronic Assessment and plan: Psychiatric consult. Appreciate input and assistance with this patient. Will add Abilify 2 mg per your recommendations and increase Paxil to max dose. We will encourage patient toward outpatient counseling and substance abuse treatment Qualifiers: Active/Remission status: currently active Major depression episode severity : moderate Qualified Code(s): F33.1 - Major depressive disorder, recurrent, moderate (4) Polysubstance (including opioids) dependence with physiol dependence Current Visit: Yes Status: Chronic Assessment and plan: Psychiatrist recommends outpatient substance abuse treatment Monitor for withdrawal Medications ordered per psychiatrics recommendations for withdrawal symptoms including clonidine 0.1 mg at at bedtime, Vistaril 25 mg 3 times a day and doxepin 50 mg at bedtime. Also treat diarrhea and nausea with Imodium and Zofran as needed (5) Severe sepsis Current Visit: Yes Status: Acute Assessment and plan: Patient met 2 SIRS criteria on admission with lactic acidosis, likely secondary to the left neck abscess Patient has improved with normalized WBCs. Tachycardia has resolved as well as lactic acidosis. Blood cultures drawn sets are no growth to date. Wound culture with group C streptococcus and surgical biopsy culture prelim no growth at 24 hours (6) Lactic acidosis Current Visit: Yes Status: Resolved (7) Neck abscess Current Visit: Yes Status: Acute Assessment and plan: Appreciate ENT and infectious disease help with this patient. Causative organism is GCS likely secondary to IV drug use. Patient reported using the left neck as an injection site. CT of the neck revealed a left neck predominantly cystic mass consistent with abscess with involvement of posterior SCM muscle. ENT was consult dated with bedside aspiration the ED on 05/12/17 that yielded 50 and mouth of pus. On went to the OR for post operative I&D. Operative note was reviewed with no pus intraoperatively but interop cultures are pending. The wound has been packed and is covered. ENT plans to consult wound therapy. Patient has lifelong allergy to penicillin without exact reactions known. Continue clindamycin at 900 mg IV every 8 hours and vancomycin with pharmacy to dose with a goal trough of 15. Start probiotics Duration of treatment depends on clinical picture per IDs note. Monitor renal function and for drug toxicity. Dose adjust antibiotics. (8) DVT prophylaxis Current Visit: Yes Status: Acute Assessment and plan: Continue Lovenox subcutaneously (9) Tobacco abuse Current Visit: Yes Status: Acute Assessment and plan: Cessation is advised (10) Crohns disease Current Visit: No Status: Chronic Qualifiers: Gastrointestinal tract location: unspecified location Digestive disease complication type: unspecified complication Qualified Code(s): K50.919 - Crohn 's disease, unspecified, with unspecified complications - Time Spent With Patient Total time spent is greater than 50% in coordination of care (as documented) at patient's floor/unit and/or counseling patient: - Subjective Interval history: Patient was asleep but arouses easily when awakened for assessment. Discussed the treatment plan and psychiatry's recommendations regarding withdrawal treatment. She verbalized understanding. Also discussed that she will likely be discharged home tomorrow with home health for wound care and on oral antibiotic. She is encouraged to follow-up with outpatient psychiatric services and a rehabilitation service. She denies any shortness of breath, headache but complains of some diarrhea and cramping as well as some nausea. - Constitutional Vitals: Temp Pulse Resp BP Pulse Ox 98.1 F 72 16 126/87 95 05/15/17 18:48 05/15/17 18:48 05/15/17 18:48 05/15/17 18:48 05/15/17 18:48 General appearance: Present: cooperative, disheveled, A&O X 2, no acute distress , answers questions appropriately - Head Head exam: Present: atraumatic, normocephalic - Eye Eye exam: Present: PERRL, conjuntiva pink, sclera anicteric Pupils: Present: PERRL - Neck Neck exam general surgery: Present: supple, trachea midline. Absent: lymphadenopathy Additional comments: Neck dressing is dry and intact. ENT was an and change some packing today - Respiratory Respiratory exam: Present: CTAB. Absent: accessory muscle use, rales, rhonchi, wheezes - Cardiovascular Cardiovascular exam: Present: RRR, +S1, +S2. Absent: diastolic murmur, gallop, rubs, systolic murmur - GI/Abdominal GI/Abdominal exam: Present: normal bowel sounds, soft, no peritoneal signs. Absent: distended, tenderness - Extremities Exam Extremities exam: Present: warm, radial pulses palpable and symmetrical. Absent : calf tenderness, cyanotic, pedal edema - Neurological Exam Neurological exam: Present: CN II-XII intact, oriented X3, no focal deficits. Absent: pronater drift, facial droop, speech deficit - Skin Skin exam: Present: dry, normal color, warm Internal Medicine: Result - Labs CBC & Chem 7: 05/15/17 06:46 05/15/17 06:46 Labs: Short CBC 05/15/17 Range/Units 06:46 WBC 7.7 (4.3-11.1) K/mcL Hgb 10.3 L (11.5-15.4) g/dL Hct 31.4 L (35.3-44.9) % Plt Count 280 (140-400) K/mcL Neutrophils # 3.6 (1.6-8.9) K/mcL BMP 05/15/17 06:46 Sodium 138 Potassium 3.8 Chloride 109 H Carbon Dioxide 21 L BUN 5 L Creatinine 0.48 L Glucose 82 Calcium 8.9 Consult Discharge Plan - Plan Referrals: See Hardy MD [Primary Care Provider] -
[2017-05-15] MEDS: ARIPiprazole 2 MG TABLET PO SCH (20:59)
[2017-05-15] MEDS ORDERED: cloNIDine HCl 0.1 MG TABLET PO SCH (21:00)
[2017-05-15] MEDS ORDERED: Ondansetron 4 MG/2 ML VIAL IVP PRN (22:19)
[2017-05-16] MEDS: Clindamycin 900 MG/50 ML 900 MG/50 ML IV.SOLN IVPB SCH ×2 (00:08→08:01)
[2017-05-16] MEDS ORDERED: Prochlorperazine 10 MG/2 ML VIAL IVP PRN (01:25)
[2017-05-16] MEDS: *HR* LORazepam 2 MG/ML VIAL IVP PRN (02:06)
[2017-05-16 03:53] LABS: Hematocrit 35.9 % (35.3-44.9); Hemoglobin 11.1 g/dL (11.5-15.4); Immature Platelets 5.5 % (1.1-6.1); Mean Corpuscular HGB Conc 30.9 g/dL (31.6-35.5); Mean Corpuscular Hemoglobin 28.9 pg (28.0-33.3); Mean Corpuscular Volume 93.5 fL (83.0-100.0); Mean Platelet Volume 10.8 fL (9.4-12.4); Red Blood Count 3.84 M/mcL (3.82-4.97); Red Cell Distribution Width 14.4 % (11.5-14.5)
[2017-05-16 04:50] LABS: BUN/Creatinine Ratio 7 (6-26); Blood Urea Nitrogen 4 mg/dL (6-20); Calcium 9.4 mg/dL (8.6-10.3); Carbon Dioxide 25 mEq/L (23-29); Chloride 101 mEq/L (98-107); Glucose 114 mg/dL (70-105); Osmolality,Calculated 280 (280-300); Potassium 3.7 mEq/L (3.5-5.1); Sodium 136 mEq/L (136-145); eGFR For African Americans > 60 (> 60); eGFR For Non-African Americans > 60 (> 60)
[2017-05-16] MEDS: *HR* Enoxaparin 40 MG/0.4 ML SYRINGE SQ SCH (06:21)
[2017-05-16 07:43] VITALS: BP 164/114
[2017-05-16] MEDS: Ondansetron ODT 4 MG TAB.RAPDIS SL PRN ×2 (07:59→12:01)
--- NOTE | 2017-05-16 07:59 | ENT - Progress Note ---
Date of Encounter: 05/16/17 Time of Encounter: 07:56 - Assessment and Plan (1) Neck abscess Current Visit: Yes Status: Acute Stable, no evidence of ongoing infection/cellulitis. Waiting wound care consultation today. From ENT standpoint she could be d/c'd with wound care plan. Recommend f/u in about a week in ENT clinic. Antibiotics per ID. Subjective Patient reports: no new complaints, pain is less Objective Initial Vital Signs Temp Pulse Resp BP Pulse Ox 98.2 F 103 16 145/89 98 05/12/17 21:22 05/12/17 21:22 05/12/17 21:22 05/12/17 21:22 05/12/17 21:22 - Neck other (Removed remaining 02/14" packing from left neck wound, no pus, no sig erythema, no bleeding-loosely recovered as waiting wound care team) - Labs 05/16/17 03:25 05/16/17 03:25 Diabetes panel 05/16/17 Range/Units 03:25 Sodium 136 (136-145) mEq/L Potassium 3.7 (3.5-5.1) mEq/L Chloride 101 (98-107) mEq/L Carbon Dioxide 25 (23-29) mEq/L BUN 4 L (6-20) mg/dL Creatinine 0.58 L (0.60-1.20) mg/dL Glucose 114 H (70-105) mg/dL Calcium 9.4 (8.6-10.3) mg/dL Calcium panel 05/16/17 Range/Units 03:25 Calcium 9.4 (8.6-10.3) mg/dL Pituitary panel 05/16/17 Range/Units 03:25 Sodium 136 (136-145) mEq/L Potassium 3.7 (3.5-5.1) mEq/L Chloride 101 (98-107) mEq/L Carbon Dioxide 25 (23-29) mEq/L BUN 4 L (6-20) mg/dL Creatinine 0.58 L (0.60-1.20) mg/dL Glucose 114 H (70-105) mg/dL Calcium 9.4 (8.6-10.3) mg/dL Adrenal panel 05/16/17 Range/Units 03:25 Sodium 136 (136-145) mEq/L Potassium 3.7 (3.5-5.1) mEq/L Chloride 101 (98-107) mEq/L Carbon Dioxide 25 (23-29) mEq/L BUN 4 L (6-20) mg/dL Creatinine 0.58 L (0.60-1.20) mg/dL Glucose 114 H (70-105) mg/dL Calcium 9.4 (8.6-10.3) mg/dL Consult Discharge Plan - Plan Referrals: See Hardy MD [Primary Care Provider] -
[2017-05-16] MEDS: hydrOXYzine pamoate 25 MG CAPSULE PO PRN (08:02)
[2017-05-16] MEDS: Lactobacillus 1 EACH CAP.SPRINK PO SCH (08:02)
--- NOTE | 2017-05-16 10:15 | Infectious Disease Progress No ---
Date of Encounter: 05/16/17 Time of Encounter: 10:13 - Assessment and Plan (1) Severe sepsis Current Visit: Yes Status: Acute The patient had two SIRS criteria on admission with lactic acidosis. Likely secondary to left neck abscess. Improved. WBC normalized. Tachycardia has resolved. Lactic acidosis has resolved. Blood cultures drawn 05/12/17 are NGTD x 2 sets. (2) Neck abscess Current Visit: Yes Status: Acute Causative organism: GCS. Likely secondary to IVDU. The patient reports using the left neck as an injection site. CT neck showed a left neck, predominantly cystic, mass consistent with abscess with involvement of the posterior SCM muscle. ENT consulted. Status post bedside aspiration in the ED on 05/12/17 that yielded ~ 50ml of pus. Status post operative I & D 05/14/17. Operative note reviewed. No pus noted intra- op. Intra-op cultures are pending. I spoke with Dr. Bolton who states there was a large amount of necrosis in the wound bed, but this was debrided and there was not any pus at the time of surgery. She also said the wound was very superficial and did not appear to invade the deep neck space or involve the carotid artery. The patient has a documented allergy to PCN. Exact reaction unknown. Reports she had "swelling" when she was a baby. Wound care per ENT recommendations. Continue Clindamycin 900mg IV Q8H. Continue probiotics. Duration of treatment depends on the clinical picture, but likely a total of 14 days from the date of surgery. Can likely switch to PO antibiotics when ready for discharge. Treat through 05/27/17. Monitor renal function and for drug toxicity and dose-adjust antibiotics. (3) Lactic acidosis Current Visit: Yes Status: Resolved Likely secondary to sepsis. Resolved. (4) Tobacco abuse Current Visit: Yes Status: Acute Tobacco cessation counseling provided. (5) Crohns disease Current Visit: No Status: Chronic Takes sulfasalazine. Qualifiers: Gastrointestinal tract location: unspecified location Digestive disease complication type: unspecified complication Qualified Code(s): K50.919 - Crohn 's disease, unspecified, with unspecified complications (6) Hepatitis C Current Visit: Yes Status: Chronic Secondary to IVDU. Known Hep C positive. HIV nonreactive. Qualifiers: Viral hepatitis chronicity: chronic Hepatic coma status: without hepatic coma Qualified Code(s): B18.2 - Chronic viral hepatitis C (7) Major depression, recurrent Current Visit: Yes Status: Chronic Psychiatry consulted. Qualifiers: Active/Remission status: currently active Major depression episode severity : moderate Qualified Code(s): F33.1 - Major depressive disorder, recurrent, moderate (8) Polysubstance (including opioids) dependence with physiol dependence Current Visit: Yes Status: Chronic - Subjective Interval history: Patient seen and examined. No acute events noted overnight. Patient states overall she doesn't feel well today. States she has less pain at the surgical site, but still has some difficulty yawning and with range of motion. Denies any fevers or chills or rigors. Denies any chest pain, shortness of breath, or cough. Reports nausea with vomiting that started yesterday. Denies diarrhea or abdominal pain. She states she does not have much of an appetite and did not eat any breakfast this morning. She denies any urinary complaints or abdominal pain. She denies any oral thrush or new skin lesions. Infect Dis PN-Objective Data - Labs CBC & Chem 7: 05/16/17 03:25 05/16/17 03:25 Labs: Laboratory Results - last 24 hr 05/15/17 05/15/17 05/16/17 11:17 11:25 03:25 WBC 9.3 RBC 3.84 Hgb 11.1 L Hct 35.9 MCV 93.5 MCH 28.9 MCHC 30.9 L RDW 14.4 Plt Count 367 MPV 10.8 Immature Plt Fraction 5.5 Sodium Potassium Chloride Carbon Dioxide BUN Creatinine Est GFR ( Amer) Est GFR (Non-Af Amer) BUN/Creatinine Ratio Glucose POC Glucose 89 Calculated Osmolality Calcium HIV Ag/Ab Combo Qual Nonreactive 05/16/17 03:25 WBC RBC Hgb Hct MCV MCH MCHC RDW Plt Count MPV Immature Plt Fraction Sodium 136 Potassium 3.7 Chloride 101 Carbon Dioxide 25 BUN 4 L Creatinine 0.58 L Est GFR ( Amer) > 60 Est GFR (Non-Af Amer) > 60 BUN/Creatinine Ratio 7 Glucose 114 H POC Glucose Calculated Osmolality 280 Calcium 9.4 HIV Ag/Ab Combo Qual Cultures: Cultures 05/14/17 Unknown Surgical Biopsy Culture - Preliminary Neck Serology 05/15/17 05/14/17 Range/Units 11:17 04:14 Urine Test Negative (Negative) HIV Ag/Ab Combo Qual Nonreactive (Nonreactive) Exam - Constitutional Vitals: Temp Pulse Resp BP Pulse Ox 98.4 F 76 14 164/114 96 05/16/17 07:42 05/16/17 07:42 05/16/17 07:42 05/16/17 07:42 05/16/17 07:42 General appearance: average body habitus, cooperative, no acute distress - Head Head exam: Present: atraumatic, normal inspection, normocephalic - Eye Eye exam: Present: EOMI, normal appearance, PERRL Pupils: Present: normal accommodation - ENT ENT exam: Present: mucous membranes moist - Neck Neck exam: Present: normal inspection Additional comments: Left neck dressing C/D/I. - Respiratory Respiratory exam: Present: CTAB. Absent: rales, respiratory distress, rhonchi, wheezes - Cardiovascular Cardiovascular exam: Present: +S1, +S2 - GI/Abdominal GI/Abdominal exam: Present: normal bowel sounds, soft, tenderness (Periumbilical ). Absent: distended - Extremities Exam Extremities exam: Present: normal inspection. Absent: joint swelling, pedal edema, tenderness - Neurological Exam Neurological exam: Present: alert, oriented X3, no focal deficits - Psychiatric Psychiatric exam: Present: normal affect, normal mood - Skin Skin exam: Present: dry, intact, normal color, warm Consult Discharge Plan - Plan Referrals: Hedy Gould MD [Partnered Physician] - (please make a follow up appointment with the [facility] [phone]) Zane Maxwell MD [Partnered Physician] - 05/20/17 8:30 am See Hardy MD [Primary Care Provider] - 05/20/17 10:00 am Candida Pablo DO [Non-Partnered Physician] - 05/23/17 1:15 pm - Attending Attestation I examined this patient and my medical decision-making was reviewed with the Resident Physician. I agree with the documented findings, disposition and treatment plan as described except to the extent set forth below.
--- NOTE | 2017-05-16 13:35 | Discharge Summary ---
- NOTES TO OUTPATIENT PROVIDER Notes to Outpatient Provider: wound clinic on Saturday. PCP in 1 to 2 weeks. Outpatient mental health provider in 1-2 weeks. Consider rehabilitation therapy as an outpatient. Follow-up with ENT in one week Orders not resulted at time of discharge: Pending orders 05/14/17 Culture,Anaerobic [RM] Routine Culture,Tissue (Biopsy) [RM] Routine Date of Encounter: 05/16/17 Time of Encounter: 13:26 - Discharge Diagnosis (1) Heroin abuse Priority: Primary Status: Chronic (2) Hepatitis C Priority: Primary Status: Chronic Qualifiers: Viral hepatitis chronicity: chronic Hepatic coma status: without hepatic coma Qualified Code(s): B18.2 - Chronic viral hepatitis C (3) Major depression, recurrent Priority: Primary Status: Chronic Qualifiers: Active/Remission status: currently active Major depression episode severity : moderate Qualified Code(s): F33.1 - Major depressive disorder, recurrent, moderate (4) Polysubstance (including opioids) dependence with physiol dependence Priority: Primary Status: Chronic (5) Severe sepsis Priority: Primary Status: Resolved (6) Lactic acidosis Priority: Primary Status: Resolved (7) Neck abscess Priority: Primary Status: Acute (8) Tobacco abuse Priority: Primary Status: Acute Comments: not interested in cessation (9) Crohns disease Priority: Primary Status: Chronic Qualifiers: Gastrointestinal tract location: unspecified location Digestive disease complication type: unspecified complication Qualified Code(s): K50.919 - Crohn 's disease, unspecified, with unspecified complications Hospital course: Ms. Terry is a 32 year old female who presented to the emergency room in severe sepsis secondary to a neck abscess. No fever was documented that she had tachycardia, leukocytosis with left shift and greater than 6 cm left sternal cleidomastoid abscess secondary to injection of drugs into her neck. She had lactic acidosis but blood pressure was within normal limits. Repeated times lactate was ordered and followed. Blood cultures and wound culture were sent in the ER. She was placed on vancomycin and clindamycin as she has penicillin allergies. CT of the neck was obtained and ENT was consulted. She had a I&D at the bedside in the ER with some pus removed and then went to the OR for Christiana formal I&D. She required wound packing. Infectious disease was consulted for recommendations on antibiotics. Psych was also following her for heroin abuse, major depressive disorder, polysubstance abuse including meth and opioids. She is known hep C positive. Cultures were followed and she was found to have group C strep coccus on her wound culture. There was no growth on the blood cultures or the surgical biopsy culture. She was discharged on clindamycin 300 mg 3 times a day which will complete on 05/27/17. She was instructed on wound care and will be followed at the wound clinic starting on Saturday. She is a follow-up with ENT in one week and that appointment has been arranged. She is also to follow-up with her PCP, is encouraged to seek drug rehabilitation as an outpatient. Also to follow-up with her outpatient mental health provider. The patient verbalized understanding but question her compliance at this point in time. Discharge discussed with: patient, nurse, social work, case management, consultant rn Time spent discussing smoking cessation with patient: 3 to 10 minutes - Time Spent with Patient Total time spent providing and/or coordinating discharge services: Less than 30 minutes - Discharge Medications Prescriptions: ARIPiprazole [Abilify] 2 mg PO HS 30 Days #30 tablet Clindamycin HCl [Cleocin HCl] 300 mg PO TID 12 Days #96 cap cloNIDine HCl [CloNIDine HCl] 0.1 mg PO HS 30 Days #30 tablet Doxepin [Sinequan] 25 mg PO HS #30 capsule Lactobacillus [Culturelle] 2 each PO DAILY 10 Days #20 cap.sprink Paroxetine [Paxil] 60 mg PO DAILY 30 Days #30 tablet Home Medications: Albuterol Sulfate [Ventolin Hfa] 2 puff IH Q4H PRN 01/24/16 [History] Omeprazole [PriLOSEC] 40 mg PO DAILY 01/24/16 [History] Sulfasalazine [Sulfazine] 1,000 mg PO DAILY 01/24/16 [History] Gabapentin [Neurontin] 1,200 mg PO TID 02/16/16 [History] Dicyclomine [Bentyl] 10 - 20 mg PO TID PRN 05/14/17 [History] ARIPiprazole [Abilify] 2 mg PO HS 30 Days #30 tablet 05/16/17 [Rx] Clindamycin HCl [Cleocin HCl] 300 mg PO TID 12 Days #96 cap 05/16/17 [Rx] Doxepin [Sinequan] 25 mg PO HS #30 capsule 05/16/17 [Rx] Lactobacillus [Culturelle] 2 each PO DAILY 10 Days #20 cap.sprink 05/16/17 [Rx] Paroxetine [Paxil] 60 mg PO DAILY 30 Days #30 tablet 05/16/17 [Rx] cloNIDine HCl [CloNIDine HCl] 0.1 mg PO HS 30 Days #30 tablet 05/16/17 [Rx] Allergies/Adverse Reactions: 3 Allergy/AdvReac Type Severity Reaction Status Date / Time Penicillins Allergy See Verified 10/21/15 01:50 Comments Date of admission: 05/12/17 23:18 Primary care physician: See Hardy MD Consults: 05/13/17 00:54 Consult to [employer] [CONS] Routine Reason for SW Consult: IV drug abuse 05/14/17 09:04 Consult to Psychiatry [CONS] Routine Consulting Provider: Psychiat[facility] [place] Reason for Consult: stopped psych meds abruptly, IV drug and methadone abuse Time Notified: 09:05 Call Completed: Yes 05/14/17 09:06 Consult to Infectious Diseases [CONS] Routine Consulting Provider: Infectious Disease [place] Reason for Consult: abscess left neck iv drug abuse allergic to PCN Time Notified: 09:07 Call Completed: Yes 05/15/17 00:55 Consult to Invasive Line Access Team [CONS] Routine Reason for Consult: Powerglide insertion, limited vascular access Line Type: EPIV 05/15/17 08:07 Consult to Wound Care [CONS] Routine Reason for Consult: Patient is post I&D left neck abscess, packing to be removed tomorrow (05/15/17) will need home wound care orders Call Completed: Yes Discharging clinician: Apryl Najera Anticipated date of discharge: 05/16/17 - Constitutional Vitals: Temp Pulse Resp BP Pulse Ox 98.4 F 76 14 164/114 96 05/16/17 07:42 05/16/17 07:42 05/16/17 07:42 05/16/17 07:42 05/16/17 07:42 General appearance: Present: cooperative, disheveled, A&O X 2, pleasant, no acute distress, answers questions appropriately - Head Head exam: Present: atraumatic, normocephalic - Eye Eye exam: Present: PERRL, conjuntiva pink, sclera anicteric Pupils: Present: PERRL - Neck Neck exam general surgery: Present: tenderness, trachea midline. Absent: lymphadenopathy, nuchal rigidity Additional comments: Wound is covered with a dry dressing. Wound care was consulted and instructed on wound care for home. No drainage noted on the dressing or around the wound. - Respiratory Respiratory exam: Present: CTAB. Absent: accessory muscle use, rales, rhonchi, wheezes - Cardiovascular Cardiovascular exam: Present: RRR, +S1, +S2. Absent: diastolic murmur, gallop, rubs, systolic murmur - GI/Abdominal GI/Abdominal exam: Present: normal bowel sounds, soft, no peritoneal signs. Absent: distended, tenderness - Extremities Exam Extremities exam: Present: warm, radial pulses palpable and symmetrical. Absent : calf tenderness, cyanotic, pedal edema - Neurological Exam Neurological exam: Present: alert, CN II-XII intact, oriented X3, no focal deficits. Absent: pronater drift, facial droop, speech deficit - Skin Skin exam: Present: dry, normal color, warm - Patient Status Disposition: Home, Self-Care Condition: Good Functional capacity at discharge: independent ambulation Overall status at discharge: patient is progressing back to baseline - Discharge Instructions Instructions: Clindamycin (By mouth), Clonidine (By mouth), Doxepin (By mouth) , Paroxetine (By mouth), Aripiprazole (By mouth), Probiotic (By mouth), Abscess (GEN) Follow Up With: Hedy Gould MD [Partnered Physician] - ([facility] [phone]) Zane Maxwell MD [Partnered Physician] - 05/20/17 8:30 am See Hardy MD [Primary Care Provider] - 05/20/17 10:00 am Candida Pablo DO [Non-Partnered Physician] - 05/23/17 1:15 pm Additional Instructions: Cleanse daily with Microklenz, lightly fluff 3x3 [place] and pack into wound. Cover with 4x4 plain gauze and cover with Medipore tape. Change dressing daily and as needed if soiled. - Diet and Activity Activity: resume usual activities as tolerated Diet: regular diet (change dressing as directed)
== END 2017-05-16 14:48 | disposition home or self-care (01) | DRG 710 ==
LOC: EMEROO 21:06 → 3BNU 21:06
PROVIDERS: ADMIT Internal Medicine; ATTEND Registered Nurse